=== PATIENT | female | born 1970 | race Caucasian/White ===

== ENCOUNTER 2016-07-03 11:00 | Emergency (ER) | payer BC ==
[2016-07-03 11:49] VITALS: BP 134/82
--- NOTE | 2016-07-03 13:17 | UC ---
Yonis Oh Karl, scribed for Jael Franco DO on 07/03/16 at 1238 . Respiratory Complaint HPI - HPI Summary HPI Summary: Pt is a 45 y/o female that presents to [facility] c/o sore throat, sinus congestion, dry cough, chest congestion, ear congestion, chills, and [place] for the past 3 days. Pt reported that her cough has also been causing sleep disturbance and it is aggravated when she takes deep breaths. Pt reported that she has tried cough drops, Mucinex D, Theraflu, and honey for her symptoms but none have offered lasting relief. Hx: asthma. - History of Current Complaint Chief Complaint: UCRespiratory Stated Complaint: ASTHMA-CHEST CONGEST/HEAD Time Seen by Provider: 07/03/16 12:21 Hx Obtained From: Patient Hx Last Menstrual Period: 06/08/16 ?: No Onset/Duration: Gradual Onset, Lasting Days, Still Present Timing: Constant Severity Initially: Moderate Severity Currently: Moderate Character: Cough: Nonproductive Aggravating Factors: Deep Breaths, Recumbent Position Alleviating Factors: Upright Position Associated Signs And Symptoms: Positive: Dyspnea - increased inhaler use, Fever - subjective, Chills, URI, Nasal Congestion, Hoarseness, Sinus Discomfort. Negative: Pleuritic Chest Pain, Dizziness - Allergies/Home Medications Allergies/Adverse Reactions: Allergies Allergy/AdvReac Type Severity Reaction Status Date / Time Erythromycin Allergy Severe Anaphylatic Verified 07/03/16 11:50 Shock Penicillins Allergy Severe Anaphylatic Verified 07/03/16 11:50 Shock PMH/Surg Hx/FS Hx/Imm Hx Endocrine History Of: Reports: Thyroid Disease Denies: Diabetes Cardiovascular History Of: Denies: Cardiac Disorders, Hypertension Respiratory History Of: Reports: Asthma Denies: COPD GI/ History Of: Denies: Ulcer - Surgical History Surgical History: Yes Surgery Procedure, Year, and Place: gallballder and tubal ligation - Family History Known Family History: Positive: Cardiac Disease - grandfather, Diabetes, Respiratory Disease, Other - colon CA - father - Social History Occupation: Employed Full-time Lives: With Family Alcohol Use: None Substance Use Type: None Smoking Status (MU): Never Smoked Tobacco Review of Systems Constitutional: Chills Skin: Negative Eyes: Negative ENT: Sore Throat, Ear Ache, Nasal Discharge, Other - sinus congestion Respiratory: Cough Cardiovascular: Negative Gastrointestinal: Negative Genitourinary: Negative Motor: Negative Neurovascular: Negative Musculoskeletal: Negative Neurological: Headache - worse with cough Psychological: Negative All Other Systems Reviewed And Are Negative: Yes Physical Exam Triage Information Reviewed: Yes Appearance: No Pain Distress, Well-Nourished, Ill-Appearing Vital Signs: Initial Vital Signs Temp 99 F 07/03/16 11:46 Pulse 76 07/03/16 11:46 Resp 22 07/03/16 11:46 BP 134/82 07/03/16 11:46 Pulse Ox 100 07/03/16 11:46 Vital Signs Reviewed: Yes Eyes: Positive: Conjunctiva Clear. Negative: Discharge ENT: Positive: Hearing grossly normal, Pharyngeal erythema - minimal, Nasal congestion, Nasal drainage, TMs normal, Tonsillar swelling - minimal, Other: - sinus tenderness bl maxillary sinuses. Negative: Tonsillar exudate, Trismus, Muffled/hoarse voice Neck exam: Normal Neck: Positive: Supple Respiratory: Positive: Lungs clear, No respiratory distress, No accessory muscle use, Wheezing - few scattered, Expiration - prolonged Cardiovascular: Positive: RRR, No Murmur Musculoskeletal Exam: Normal Neurological: Positive: Alert, Muscle Tone Normal Psychological Exam: Normal Psychological: Positive: Age Appropriate Behavior Skin Exam: Normal - warm, dry, normal skin color UC Diagnostic Evaluation - Laboratory O2 Sat by Pulse Oximetry: 100 Respiratory Course/Dx - Differential Dx/Diagnosis Differential Diagnosis/HQI/PQRI: Asthma, Bronchitis, Lower Resp Infection, Sinusitis Provider Diagnoses: sinusitis, bronchospasm, asthma Discharge - Discharge Plan Condition: Stable Disposition: HOME Prescriptions: Benzonatate CAP* [Tessalon CAP*] 100 mg PO TID #30 cap Cefdinir (NF) 300 mg PO BID #20 cap guaiFENesin ER TAB [Mucinex*] 600 mg PO BID PRN #1 box PRN Reason: Cough guaiFENesin/CODIEN 100MG-10MG* [Robitussin AC 100Mg-10Mg*] 5 - 10 ml PO Q4H PRN #100 udc MDD 10ml PRN Reason: Cough predniSONE TAB* [Deltasone TAB*] 40 mg PO DAILY #10 tab Patient Education Materials: Sinusitis (ED), Bronchospasm (ED), Asthma (ED) Forms: *Work Release Referrals: Abhi Marcos MD [Primary Care Provider] - If Needed Additional Instructions: TRY USING THE NETTI POT IN THE MORNINGS DISCUSSED. YOU MUST ALWAYS USE CLEAN WATER. REMEMBER, POSTURE IS AN IMPORTANT FACTOR IN SINUS DRAINAGE. MOVE YOUR NECK, BREATHE. INHALED BRONCHODILATORS:continue using your inhaler as directed You have received a prescription for an inhaled bronchodilator -- a medication which stimulates the airways in the lung to dilate. This improves the flow of air in asthma, bronchitis, and emphysema. These medicines have some similarity to adrenaline, and can cause similar side effects: shakiness, racing heart, and a sense of nervousness. These side effects decrease with time. Contact your doctor if these side effects are severe. Do not over-use the medicine. Too-frequent use of the inhaler may make it ineffective. Call your doctor if the inhaler is not controlling your symptoms at the prescribed doses. COUGH-SUPPRESSANT & EXPECTORANT MEDICATION: You are to use a cough medication as needed for relief of symptoms. This medicine is a combination of an expectorant (to make the mucous thinner and more easily "coughed up") and a cough suppressant (to reduce the frequency of coughing). The cough-suppressant medicine is related to narcotics. You may experience mild nausea and sleepiness. Some patients who are very sensitive to narcotics may have stomach pain from this medicine. Taking the medicine with food reduces these side effects. Do not drive or work with machinery until you know how this medicine affects you. The expectorant should have no side effects. Iodine-containing expectorants (such as organidin) should not be taken by persons with active thyroid disease unless approved by your doctor. Call the doctor if you develop shortness of breath, hives, rash, itching, lightheadedness, or severe nausea and vomiting. EXPECTORANT MEDICATION: An expectorant medicine has been prescribed. This type of drug makes mucous thinner, helping the sinuses, nose, and bronchial tubes to remain free of pus and mucous. Expectorants make a cough less severe and more comfortable, and help infected sinuses drain. In general, antihistamines defeat the purpose of the expectorant by making mucous thicker. They should be avoided unless specifically recommended by your physician. TESSALON PERLES: You have received a prescription for Tessalon Perles (benzonatate). This is a non-narcotic medicine for relief of cough. It usually works in about 15- 20 minutes and lasts around four hours. Tessalon Perles should be swallowed. They should not be chewed or dissolved in the mouth (this can produce temporary numbing of the mouth and choking can occur). If you develop any adverse effects such as wheezing, shortness of breath, hives, rash, itching, or lightheadedness, please return at once. CORTICOSTEROID MEDICATION: You have been given a medicine of the cortisone class. This medication is used to control inflammation or allergy. It is usually only given for a short period of time, until the acute process subsides. There are usually no side effects from short-term use of cortisone-like medications. Some persons feel an increased sense of well-being and are not sleepy at bedtime. Long-term use of cortisone medications is best avoided, unless required for a severe condition. If your condition does not remit, or relapses after the course of corticosteroid medication, you should consult your physician. Contact the physician if you develop lightheadedness, black or tarry stools , swelling of the legs, or significant rapid change in weight. ANTIBIOTICS ARE NOT CURRENTLY INDICATED FOR YOUR CONDITION. HOWEVER IF YOUR SYMPTOMS WORSEN OR PERSIST FOR MORE THAN 4-7 DAYS, YOU CAN START THE FOLLOWING ANTIBIOTIC: CEPHALOSPORINS: An antibiotic of the cephalosporin class has been prescribed. This type of antibiotic covers a wide variety of infections, including those of the skin, lungs, middle ear, and urinary tract. This antibiotic is somewhat similar to the penicillin family. In rare cases , a person who is allergic to penicillin will also be allergic to this medication. If you have had a severe allergic reaction to penicillin, and have not taken this antibiotic since that time, notify your doctor. Antibiotics which cover many germs ("broad spectrum" antibiotics) are more likely to cause diarrhea or "yeast" infections. Women prone to vaginal yeast problems may suffer an attack after taking this antibiotic. In infants, oral thrush (white spots "stuck" on the cheek) or yeast diaper rash may result. See your doctor if these problems occur. Call the doctor at once if you develop hives, itching, shortness of breath , or lightheadedness. ANY TIME YOU TAKE AN ANTIBIOTIC, IT IS IMPORTANT TO REPLENISH THE BODY'S BALANCE OF "GOOD" BACTERIA BY EATING HIGH QUALITY CULTURED FOOD SUCH YOGURT, SAURKRAUT OR SANG CHI AND/OR TAKING A PROBIOTIC SUPPLEMENT. The documentation as recorded by the Yonis jalloh Karl accurately reflects the service I personally performed and the decisions made by , Jael Franco DO.
== END 2016-07-03 13:12 | disposition home or self-care (01) ==
LOC: UCEAST 11:00
DX: J01.90 Acute sinusitis, unspecified (principal); B96.89 Other specified bacterial agents as the cause of diseases classified elsewhere; J45.909 Unspecified asthma, uncomplicated
CPT/HCPCS: 99212; G0463

== ENCOUNTER 2017-10-31 09:30 | Inpatient (IN) | payer BC ==
[2017-11-06] MEDS ORDERED: Buffered Lidocaine 0.9% SYRIN* 5 ML/SYR SYRINGE INTRADERM ONE (14:56)
[2017-11-07] MEDS ORDERED: Heparin VIAL(*) 5000 UNITS/ML VIAL (FIVE THOUSAND) ONE (08:41)
[2017-11-07] MEDS ORDERED: Buffered Lidocaine 0.9% SYRIN* 5 ML/SYR SYRINGE ONE (08:41)
[2017-11-07] MEDS ORDERED: Ciprofloxacin 400MG IVPREMIX(* 400 MG/200 ML BAG ONE (08:41)
[2017-11-07] MEDS ORDERED: Clindamycin 900 MG IVPREMIX(* 900 MG/50 ML SDV IV ONE (08:41)
[2017-11-07] MEDS ORDERED: Scopolamine 1.5 mg* PATCH ONE (09:50)
[2017-11-07] MEDS ORDERED: Midazolam* 1 MG/ML 5 ML VIAL (5 MG) ONE (09:50)
[2017-11-07] MEDS ORDERED: Methylene Blue 0.5 %* 50 MG/10 ML AMP IV ONE (09:51)
[2017-11-07] MEDS ORDERED: Bupivacaine 0.25% SDV* 30 ML ONE ×2 (09:52→10:04)
[2017-11-07] MEDS ORDERED: Atracurium* 10 MG/ML 10 ML VIAL ONE (09:53)
[2017-11-07] MEDS ORDERED: fentaNYL* 50 MCG/ML 2 ML VIAL (100 MCG VIAL) ONE ×3 (09:53→13:37)
[2017-11-07] MEDS ORDERED: Dexamethasone IV* 4 MG/ML 1 ML (4 MG) ONE (10:40)
[2017-11-07] MEDS ORDERED: Glycopyrrolate IV* 0.2 MG/ML 1 ML VIAL ONE (13:07)
[2017-11-07] MEDS ORDERED: Neostigmine Methylsulfate* 1 MG/ML 10 ML VIAL (1 mg/ml) ONE (13:07)
[2017-11-07] MEDS ORDERED: HYDROmorphone INJ* 2 MG/ML CARPUJECT SYRINGE IV PRN (13:16)
[2017-11-07] MEDS ORDERED: HYDROcodone/ACET. 7.5/325 LIQ* 15 ML UDC PO PRN (13:16)
[2017-11-07] MEDS ORDERED: Ondansetron INJ* 2 MG/ML VIAL IV PRN ×2 (13:16→13:26)
--- NOTE | 2017-11-07 13:16 | BRIEFOPN ---
Brief Operative Note - Surgery Procedures: Procedures Pre-OP Diagnoses: Clinically severe obesity Post-op Diagnosis: same Procedure: Laparoscopic Adrian an Y gastric bypass Surgeon: Isela Asst: Kaila Anethesia: GETA EBL: <100cc IVF: 2000cc LR Specimen: none Drains: none
[2017-11-07] MEDS ORDERED: Albuterol HFA INHALER* 8 gm MDI INH PRN (13:19)
[2017-11-07] MEDS ORDERED: DiMENhydriNATE IV* 50 MG/ML VIAL IV PUSH PRN (13:26)
[2017-11-07] MEDS ORDERED: Naloxone* 0.4 MG/ML 1 ML VIAL IV PRN (13:26)
[2017-11-07] MEDS ORDERED: fentaNYL* 50 MCG/ML 2 ML VIAL (100 MCG VIAL) IV PRN (13:26)
[2017-11-07] MEDS ORDERED: DiMENhydriNATE IV* 50 MG/ML VIAL ONE (13:44)
[2017-11-07] MEDS ORDERED: HYDROmorphone INJ* 2 MG/ML CARPUJECT SYRINGE ONE (15:22)
[2017-11-07] MEDS: HYDROmorphone INJ* 1 MG/ML CARPUJECT SYRINGE IV PRN ×2 (15:27→15:32)
[2017-11-07] MEDS ORDERED: Ondansetron 40 MG VIAL* 2 MG/ML 20 ML VIAL IV PRN (15:52)
[2017-11-07] MEDS: Heparin VIAL(*) 5000 UNITS/ML VIAL (FIVE THOUSAND) SUBCUT SCH ×2 (17:19→22:08)
[2017-11-07] MEDS: Ketorolac INJ* 30 MG/ML 1 ML VIAL IV PRN (19:32)
[2017-11-07] MEDS: Famotidine IV* 10 MG/ML 2 ML (20 mg) IV SLOW PU SCH (20:56)
[2017-11-08] MEDS: Ketorolac INJ* 30 MG/ML 1 ML VIAL IV PRN ×2 (02:47→08:42)
[2017-11-08] MEDS ORDERED: Levothyroxine TAB* 125 MCG TAB PO SCH (06:00)
[2017-11-08] MEDS: Heparin VIAL(*) 5000 UNITS/ML VIAL (FIVE THOUSAND) SUBCUT SCH ×2 (06:22→15:13)
[2017-11-08] MEDS: Famotidine IV* 10 MG/ML 2 ML (20 mg) IV SLOW PU SCH (08:42)
--- NOTE | 2017-11-08 09:17 | PN ---
Progress Note - Progress Note Date of Service: 11/08/17 Note: S: (seen with and examined by Dr. Weiss) POD #1. Some pain. No N/V. Ambulating. Voiding well. O: Vital Signs - 8 hr 11/08/17 03:33 Temperature 98.0 F Pulse Rate 71 Respiratory 16 Rate Blood Pressure 111/55 (mmHg) O2 Sat by Pulse 96 Oximetry Intake and Output Last 24 Hours 11/06/17 11/07/17 11/08/17 11/09/17 06:59 06:59 06:59 06:59 Intake Total 3890 Output Total 1900 Balance 1989 Weight 216 lb 6.4 oz Intake: IV Fluids 3890 LR 3890 Oral 0 Output: Urine 1350 Jane 300 Estimated Blood Loss 250 Other: # Bowel Movements 0 (estimated OR blood loss was < 50 ml) Gen: appears comfortable; NAD Heart: reg Lungs: clear ant Abd: lap sites clean w/ min spotting on cover dsgs; soft; incisional tenderness , grace at subxiphoid site A: s/p lap gastric bypass, doing well P: start nellie clear liqs; will monitor and recheck later in the day; poss d/c home if meets criteria
--- NOTE | 2017-11-08 11:31 | OP ---
CC: Dr. Abhi Marcos; [facility]. OPERATIVE REPORT: DATE OF OPERATION: 11/07/17 DATE OF : 70 SURGEON: Enrique Weiss MD SHOE SINGER: ROSANNA Pope ANESTHESIOLOGIST: Dr. Ramos. ANESTHESIA: General anesthesia. PRE-OP DIAGNOSIS: Clinically severe obesity. POST-OP DIAGNOSIS: Clinically severe obesity. OPERATIVE PROCEDURE: Laparoscopic Adrian-en-Y gastric bypass. ESTIMATED BLOOD LOSS: Minimal blood loss, less than 100 cc. FLUIDS: 2 liters of crystalloid fluid given. SPECIMENS: None. DRAINS: None. COUNTS: Lap pad count and instrument count correct at the end of the procedure. CONDITION: The patient was extubated and transferred to the PACU in stable condition. DESCRIPTION OF PROCEDURE: The patient was identified in the preoperative area, marked, consent hafsa d. I discussed the case with her and her family again. She was seen by anesthesia, brought to the o perating room, placed on the operating room table in a supine position. Preoperative antibiotics wer e given, sequential devices were placed on bilateral lower extremities, general anesthesia was induce d. The patient's abdomen was prepped and draped in the standard surgical fashion. A time-out was per formed. Folds of the umbilicus were elevated anteriorly and a Veress needle inserted into the abdominal cavit y which was allowed to insufflate to a pressure 15 mmHg. The patient tolerated the insufflation well . [place] between the xiphoid and the umbilicus a 12 mm trocar was inserted left of midline. Laparos cope was inserted through this and there was no evidence of injury from the trocar insertion. The V eress needle was then removed. Additional trocars were placed in the following position; 5 mm and 12 mm in the left upper quadrant a nd a 5 mm and a 12 mm in the right upper quadrant. Review of the abdomen showed no adhesions. The o mentum was then reflected superiorly. Transverse colon identified and retracted anteriorly and the li gament of Treitz identified. We counted off approximately 50 cm from the ligament of Treitz and mad e a bowel resection with a 45-mm farmer ARINA stapling device. The proximal limb would be the biliary espinoza creatic limb. We performed an enterotomy at this site. We then counted off what would become Adrian l imb, approximately 75 cm was counted off. Another enterotomy was made and the jejunojejunostomy was c reated with a 60-mm farmer ARINA stapling device. The common defect was reapproximated with interrupted 2-0 silk sutures in the [id number] fashion and the mesenteric defect was similarly closed. Attention was then turned towards the upper abdomen, liver retractor was inserted through a subxiphoi d incision and the liver was retracted anteriorly into the right. We could see a hiatal hernia anter iorly with puckering of the fat pad, but minimum amount of stomach. We grasped this fat pad and retr acted it inferiorly into the abdomen. Both blunt and sharp dissection along with electrocautery was used to expose the left crura with laxity anteriorly on this crura, but we cleared out this space pos terior on the crura. Next, a retrogastric tunnel was made at approximately gastric vessel along the lesser curvatu re. A 45-mm farmer ARINA stapling device was fired across this and the stomach pouch was completed with t wo additional 60-mm ildefonso followed by a 44- mm stapler. The last 45-mm stapler was fired after vance cing an OG tube down to ensure we are in the proper place. Anesthesia have some difficulty placing a n Derrell tube initially. On review of the stomach pouch, I felt this was appropriate size. There was no posterior stomach and I felt that we do not have to perform any type of cruroplasty under this circumstances. Next the OG tube was replaced with a larger Derrell tube 34 [place]cu[place] and it went smoothly into the distal stomach pouch. Next small bowel Adrian-limb was then brought up in apposition to the stomach pouch and stay sutures we re placed using 2-0 silk sutures. Next a gastrostomy was made over the Derrell tube and then an enterotomy was made. The two were mated w ith a 30-mm farmer ARINA stapling device to create the gastrojejunostomy. The common defect was reapproxi mated with 3-0 PDS sutures in a running fashion starting superiorly and also inferiorly and tying the m in the middle. Next the anastomosis was tested passing the Derrell tube easily into the proximal Adrian limb. The Adrian limb was clamped and with the gauze behind the anastomosis methylene blue dye test was performed. Th e small bowel and gastric pouch were distended easily and there was no evidence of blue dye. The dimas e dye was then removed through the Derrell tube by the anesthesiologist. The tube was removed in its e ntirety. Review of the suture line looked good. I did also place a second row of 2-0 silk suture at the infer ior aspect of it. Next a Maxime retractor was removed. Review of the jejunojejunostomy appeared intact. The hemost asis was excellent. The abdomen was allowed to collapse and all trocars were removed under direct vi chico. All skin incisions were reapproximated with 4-0 Monocryl subcuticular sutures followed by Ster i-Strips and sterile dressing. The patient tolerated the procedure well, woken up in the OR, and tra nsferred back in stable condition. [id number]/[facility] #: [id number]
[2017-11-08] MEDS ORDERED: D5W 1/2 NS KCl 20 Meq 1000 ML* 1,000 ML IV SCH (13:17)
[2017-11-08] MEDS ORDERED: Acetaminophen ADULT LIQ* 650 MG/20.3 ML UDC ONE (16:12)
[2017-11-08] MEDS ORDERED: Acetaminophen ADULT LIQ* 650 MG/20.3 ML UDC PO PRN (16:15)
[2017-11-08 17:09] VITALS: BP 119/68
--- NOTE | 2017-11-09 18:52 | DS ---
CC: Dr. Abhi Marcos; [facility] DISCHARGE SUMMARY: DATE OF ADMISSION: 11/07/17 DATE OF DISCHARGE: 11/08/17 HISTORY OF PRESENT ILLNESS: Ms. Mancini is a 47-year-old female who is admitted to same-day surgery an d underwent laparoscopic Adrian-en-Y gastric bypass for severe obesity. Please see operative report fo r separate details. The patient was transferred to the PACU and on to the short-stay surgical unit for the postoperative period. On postoperative day #1, patient was doing well. She was started on a clear liquid diet and tolerate d this well. She has taken Tylenol for pain rather than narcotics. She was also on Toradol. The ofe durán was examined in the morning and again in the afternoon. She was afebrile. Vital signs are sta ble. Alert and oriented x3, in no apparent distress. Lungs: Clear. Abdomen: Soft, nondistended. Tenderness in the epigastrium without rebound. No masses or hernias noted. Dressings clean, dry an d intact. No calf tenderness. IMPRESSION: Postoperative day #1, Adrian-en-Y gastric bypass. Plan is for followup in the office at [facility] next week. The patient has appointment already. Sh yarelis has Lortab for pain. She will go back on her Synthroid and we will discharge her today. The patie nt is aware. Her questions were answered. She understands she can contact our office should there b e any issues. [id number]/[facility] #: [id number]
== END 2017-11-08 17:25 | disposition home or self-care (01) | DRG 403 ==
LOC: AA 11-07 08:26 → SSU 11-07 15:44
PROVIDERS: ADMIT Surgery; ATTEND Surgery
PROC: 0D164ZA Bypass Stomach to Jejunum, Percutaneous Endoscopic Approach (ICD-10-PCS; principal; 2017-11-07 09:45)
DX: E66.01 Morbid (severe) obesity due to excess calories (principal); J45.909 Unspecified asthma, uncomplicated; G47.33 Obstructive sleep apnea (adult) (pediatric); M19.90 Unspecified osteoarthritis, unspecified site; E07.9 Disorder of thyroid, unspecified; Z88.0 Allergy status to penicillin; Z88.1 Allergy status to other antibiotic agents; Z98.51 Tubal ligation status; Z90.49 Acquired absence of other specified parts of digestive tract; Z82.49 Family history of ischemic heart disease and other diseases of the circulatory system; Z83.3 Family history of diabetes mellitus; Z68.41 Body mass index [BMI] 40.0-44.9, adult; Z72.89 Other problems related to lifestyle; Z80.0 Family history of malignant neoplasm of digestive organs
CPT/HCPCS: 43644; 81025; A9270-GY; C1776; J0744; J1100; J1170; J1240; J1644; J1885; J2250; J2405; J2710; J3010

== ENCOUNTER 2017-11-13 03:46 | Inpatient (IN) | payer BC ==
[2017-11-13] MEDS ORDERED: NS 0.9% 1000 ML* 1,000 ML IV ONE (04:09)
[2017-11-13] MEDS ORDERED: Ketorolac INJ* 30 MG/ML 1 ML VIAL IV PUSH ONE (04:10)
[2017-11-13] MEDS ORDERED: Metoclopramide IV* 5 MG/ML 2 ML VIAL IV SLOW PU ONE (04:10)
[2017-11-13 04:34] LABS: ABS Basophils 0 10^3/ul (0-0.2); ABS Eosinophils 0.1 10^3/ul (0-0.6); ABS Lymphocytes 0.9 10^3/ul (1.0-4.8); ABS Monocytes 0.6 10^3/ul (0-0.8); ABS Neutrophils 6.9 10^3/ul (1.5-7.7); ABS Nucleated RBC 0 10^3/ul; Eosinophil % 1.6 % (0-6); Hematocrit 34 % (35-47); Hemoglobin 11.5 g/dl (12.0-16.0); Lymphocyte % 11.1 % (25-47); Mean Corpuscular HGB Conc 34 g/dl (31-36); Mean Corpuscular Hemoglobin 29 pg (27-31); Mean Corpuscular Volume 85 fL (80-97); Mean Platelet Volume 8.4 um3 (7.4-10.4); Nucleated Red Blood Cells % 0; Platelet Count 240 10^3/ul (150-450); Red Cell Distribution Width 15 % (10.5-15); White Blood Count 8.6 10^3/ul (3.5-10.8)
[2017-11-13 04:59] LABS: EGFR Non-African American 123.6 (>60)
[2017-11-13] MEDS ORDERED: Iohexol 300* (CONTRAST) 10 ML SDV IV ONE (05:09)
--- NOTE | 2017-11-13 06:56 | ED ---
Lidia Oh Emily, scribed for Virginie Starkey MD on 11/13/17 at 0413 . Abdominal Pain/Female - HPI Summary HPI Summary: This patient is a 47 year old F presenting to [facility] accompanied by with a chief complaint of diffuse abd cramping that began on 11/11/2017. The patient rates the pain 5/10 in severity. Symptoms aggravated by nothing. Symptoms alleviated by nothing. Patient reports vomiting and dry heaving. Pt had gastric bypass abdominal surgery on 11/07/2017. Pt states she has not had a bowel movement in the past 3 days. - History of Current Complaint Chief Complaint: EDAbdPain Stated Complaint: ABD PAIN Time Seen by Provider: 11/13/17 03:58 Hx Obtained From: Patient Hx Last Menstrual Period: 06/08/16 Onset/Duration: Sudden Onset, Lasting Hours, Still Present Timing: Constant Severity Initially: Moderate Severity Currently: Moderate Pain Intensity: 5 Pain Scale Used: 0-10 Numeric Location: Diffuse Character: Cramping Aggravating Factor(s): Nothing Alleviating Factor(s): Nothing Associated Signs and Symptoms: Positive: Vomiting, Other: - Positive dry heaving Allergies/Adverse Reactions: Allergies Allergy/AdvReac Type Severity Reaction Status Date / Time erythromycin base Allergy Anaphylatic Verified 11/13/17 03:53 Shock Penicillins Allergy Anaphylatic Verified 11/13/17 03:53 Shock PMH/Surg Hx/FS Hx/Imm Hx Previously Healthy: No Endocrine/Hematology History: Reports: Hx Thyroid Disease, Hx Anemia - reports occas borderline Denies: Hx Diabetes Cardiovascular History: Denies: Hx Hypertension Respiratory History: Reports: Hx Asthma, Hx Sleep Apnea - just diagnosed, no CPAP yet, Other Respiratory Problems/Disorders - pnuemonia 5-7 yrs ago Denies: Hx Chronic Obstructive Pulmonary Disease (COPD) GI History: Reports: Hx Hiatal Hernia - reports small one found during EGD Denies: Hx Ulcer Musculoskeletal History: Reports: Hx Arthritis - hips Denies: Hx Scoliosis Sensory History: Reports: Hx Contacts or Glasses - driving glasses only Opthamlomology History: Reports: Hx Contacts or Glasses - driving glasses only Neurological History: Denies: Hx Headaches, Other Neuro Impairments/Disorders - Surgical History Surgery Procedure, Year, and Place: cholecyst[place] ([place] "[place]" [place] [facility] [place] [facility] [place] [facility] Hx Anesthesia Reactions: No Infectious Disease History: No Infectious Disease History: Reports: Hx of Known/Suspected MRSA - reports on face in 2007, Hx Shingles - reports on right arm 2014 Denies: Hx Clostridium Difficile, Hx Hepatitis, Hx Human Immunodeficiency Virus (HIV), Hx Tuberculosis, Hx Known/Suspected VRE, Hx Known/Suspected VRSA, History Other Infectious Disease, Traveled Outside the [place] in Last 30 Days - Family History Known Family History: Positive: Cardiac Disease - grandfather, Diabetes, Respiratory Disease, Other - colon CA - father - Social History Occupation: Employed Full-time Lives: Alone Alcohol Use: Occasionally Substance Use Type: Reports: None Smoking Status (MU): Never Smoked Tobacco Review of Systems Negative: Fever Positive: Abdominal Pain, Vomiting, Other - Positive dry heaving All Other Systems Reviewed And Are Negative: Yes Physical Exam - Summary Physical Exam Summary: VITAL SIGNS: Reviewed. GENERAL: ~Patient is a well-developed and nourished female who is lying comfortable in the stretcher. Patient is not in any acute respiratory distress. HEAD AND FACE: No signs of trauma. No ecchymosis, hematomas or skull depressions. No sinus tenderness. EYES: PERRLA, EOMI x 2, No injected conjunctiva, no nystagmus. EARS: Hearing grossly intact. Ear canals and tympanic membranes are within normal limits. MOUTH: Oropharynx within normal limits. NECK: Supple, trachea is midline, no adenopathy, no JVD, no carotid bruit, no c- spine tenderness, neck with full ROM. CHEST: Symmetric, no tenderness at palpation LUNGS: Clear to auscultation bilaterally. No wheezing or crackles. CVS: Regular rate and rhythm, S1 and S2 present, no murmurs or gallops appreciated. ABDOMEN: Soft. No signs of distention. No rebound no guarding, and no masses palpated. Steri strips over laparoscopic ports. Hypoactive bowel sounds. RECTAL EXAM: Female RN present. Empty rectum. EXTREMITIES: FROM in all major joints, no edema, no cyanosis or clubbing. NEURO: Alert and oriented x 3. No acute neurological deficits. Speech is normal and follows commands. SKIN: Dry and warm Triage Information Reviewed: Yes Vital Signs On Initial Exam: Initial Vitals Temp Pulse Resp BP Pulse Ox 98.1 F 87 20 129/90 98 11/13/17 03:48 11/13/17 03:48 11/13/17 03:48 11/13/17 03:48 11/13/17 03:48 Vital Signs Reviewed: Yes Diagnostics - Vital Signs Vital Signs Temp Pulse Resp BP Pulse Ox 11/13/17 03:48 98.1 F 87 20 129/90 98 - Laboratory Result Diagrams: 11/13/17 04:20 11/13/17 04:20 Lab Statement: Any lab studies that have been ordered have been reviewed, and results considered in the medical decision making process. - CT CT Abdomen/Pelvis CT Interpretation Completed By: Radiologist - CT abdomen and pelvis reveals, per radiologist, 4.1 cm right ovarian cyst, possibly hemorrhagic in nature, and small amount of free fluid. Possible obstruction of the bypassed gastric remnant , although this would be an unusual early postoperative complication. ED physician has reviewed this radiology report. Re-Evaluation - Re-Evaluation First Eval Re-Evaluation Time: 06:44 Change: Unchanged Comment: Discussed results with pt Abdominal Pain Fem Course/Dx - Course Course Of Treatment: This patient is a 47 year old F presenting to [facility] accompanied by with a chief complaint of diffuse abd cramping that began on prior to arrival. Pt had gastric bypass abdominal surgery on 2017. Pt states she has not had a bowel movement in the past [address] abdomen and pelvis reveals, per radiologist, 4.1 cm right ovarian cyst, possibly hemorrhagic in nature, and small amount of free fluid. Possible obstruction of the bypassed gastric remnant, although this would be an unusual early postoperative complication. Consult with Dr. Weiss (surgeon) at 0648. He agrees to see the pt in the ED. Pt will be signed out to Dr. Walker upon shift change pending pt being seen by Dr. Weiss. - Diagnoses Provider Diagnoses: Abdominal pain - Provider Notifications Discussed Care Of Patient With: Enrique Weiss Time Discussed With Above Provider: 06:48 Instructed by Provider To: Other - Consult with Dr. Weiss (surgeon) at 0648. He agrees to see the patient in the ED. Discharge - Sign-Out/Discharge Documenting (check all that apply): Sign-Out Patient Signing out patient TO: Miguel Walker - Upon shift change pending evaluation by Dr. Weiss - Discharge Plan Condition: Stable Referrals: Abhi Marcos MD [Primary Care Provider] - The documentation as recorded by the Lidia jalloh Emily accurately reflects the service I personally performed and the decisions made by me, Virginie Starkey MD.
[2017-11-13] MEDS ORDERED: HYDROmorphone INJ* 1 MG/ML CARPUJECT SYRINGE IV PRN (07:26)
[2017-11-13 07:59] LABS: Urine Appearance Clear; Urine Blood Negative (Negative); Urine Color Yellow; Urine Ketones 2+ (Negative); Urine Protein Negative (Negative); Urine Specific Gravity > 1.060 (1.010-1.030); Urine Urobilinogen Negative (Negative)
--- NOTE | 2017-11-13 08:49 | HP ---
CC: ; Dr. Abhi Marcos HISTORY AND PHYSICAL UPDATE: DATE OF ADMISSION: 11/13/17 HISTORY OF PRESENT ILLNESS: Ms. Mancini is a 47-year-old female who is postop day 6 from laparoscopic Adrian-en-Y gastric bypass. The patient was discharged home on postoperative day 1, had some discomfor t and concern for constipation and took laxatives, done well on Sunday and on Sunday a little worse when she was taking laxatives. Sunday was a fair day as well but by Sunday the patient had retching and worsening pain and called the service. I directed her to go to the emergency room. In the [facility] room, the patient's workup included CAT scan as well as labs; these were reviewed. The patient has minimal amount of flatus since surgery. She describes having no bowel movements. Sh yarelis did not vomit but rather dry heave. She has been drinking fluids. She has been staying away from solid foods. She denies any fevers or chills. She did have sweats during one of the episodes of ret alisa. PAST MEDICAL HISTORY: Asthma, obesity, thyroid disease, osteoarthritis, and obstructive sleep apnea. She does not use CPAP machine. PAST SURGICAL HISTORY: Cholecystectomy, tubal ligation, and a Adrian-en-Y gastric bypass as described. MEDICATION LIST: At this point, Synthroid. ALLERGIES: PENICILLIN and ERYTHROMYCIN. REVIEW OF SYSTEMS: No shortness of breath or chest pain. Abdominal complaints as described. Her th roat feels dry. She denies any dysuria. No bowel movements as described above. PHYSICAL EXAMINATION GENERAL: Alert and oriented x3, in no apparent distress. VITAL SIGNS: She is afebrile. Vital signs are stable. Blood pressure 120/89, heart rate 71. HEENT: Normocephalic, atraumatic. Sclerae anicteric. Mucous membranes are dry. NECK: No lymphadenopathy. LUNGS: Clear to auscultation bilaterally ABDOMEN: Soft, mild distention in the upper abdomen. Tender periumbilically and up in the epigastri um without rebound. No masses or hernias noted. Well healed surgical incisions. EXTREMITIES: Within normal limits. No calf tenderness or swelling. RECTAL: Not performed. DIAGNOSTIC STUDIES/LAB DATA: Labs show a white count of 8.6 with no left shift. Metabolic panel is within normal limits. Mildly elevated CRP. CT scan reviewed shows a dilated remnant stomach and duodenum. It does show scant amount of oral con trast distally but not into the colon. Stool is noted in the colon. Official read pending. IMPRESSION: Postoperative day 6 from Adrian-en-Y gastric bypass with obstruction of the biliopancreati c limb of unclear etiology, possible internal hernia versus complication at the jejunojejunostomy. R ecommendation is diagnostic laparoscopy, possible laparotomy. I outlined the details of the procedur e of possible revision of the jejunojejunostomy and possible placement of a remnant gastrostomy. We also talked about the possibility of open procedure, possibility of infection, bleeding, postoperativ checo need for additional procedures, prolonged hospitalization, pulmonary embolism, myocardial infarct ion, possible intensive care unit needs. The patient's questions were answered. She will get a dose of antibiotic going into the OR. She will remain n.p.o. with IV fluids. The patient is aware of th is. [id number]/[facility] #: [id number]
--- NOTE | 2017-11-13 08:51 | RAD ---
INDICATION: Abdominal pain COMPARISON: CT abdomen pelvis July 27, 2012 TECHNIQUE: Axial source images were obtained from the hemidiaphragms to the symphysis pubis following administration of oral and intravenous contrast. 128 mL Omnipaque 300 was utilized. Coronal and sagittal reconstructed images were acquired. Lung bases: The lung bases are clear. Liver: The liver is normal in size. There are no masses. There is minor intrahepatic ductal dilatation. Gallbladder: Cholecystectomy. Spleen: The spleen is normal in size. There are no masses. Pancreas: There is no focal pancreatic mass or ductal dilatation. Adrenal glands: There is no evidence of adrenal mass. Kidneys: The kidneys are normal in size and position. There are prompt nephrograms and there is prompt excretion bilaterally. There are no renal parenchymal masses. There is no evidence of nephrolithiasis. Adenopathy: There is no evidence of adenopathy by size criteria. Fluid collections: There is trace free fluid in the cul-de-sac. Vessels:There are no significant atherosclerotic changes involving the aorta. There is no focal aneurysm. The iliac vessels are normal in caliber. The IVC appears normal. GI tract: There is there is gastric Adrian-en-Y procedure. The gastric remnant and proximal duodenum appear dilated and fluid-filled. There may be an obstruction. There is a small amount of oral contrast in the decompressed small bowel. There is air within the colon. Pelvic organs: The uterus appears normal. The left adnexa is normal. There is a 4.1 cm right ovarian cyst.. Bladder: There are no bladder masses. Abdominal and pelvic soft tissues: There is a small septation air likely secondary to recent surgery and there is mild stranding of the subcutaneous fat of the anterior lower abdomen.. Osseous structures: There are no acute osseous findings. Other: None IMPRESSION: 1. Possible obstruction of the gastric remnant and proximal duodenum. 2. 4.1 cm right ovarian cyst. Suggest sonographic follow-up.
[2017-11-13] MEDS ORDERED: Scopolamine 1.5 mg* PATCH ONE (09:05)
[2017-11-13] MEDS ORDERED: Clindamycin 900 MG IVPREMIX(* 900 MG/50 ML SDV IV ONE (09:38)
[2017-11-13] MEDS ORDERED: Saline, Bacteriostatic* 30 ML VIAL ONE (11:01)
[2017-11-13] MEDS ORDERED: Bupivacaine 0.5% SDV PF* 30ML VIAL ONE (11:02)
[2017-11-13] MEDS ORDERED: fentaNYL* 50 MCG/ML 2 ML VIAL (100 MCG VIAL) ONE ×4 (11:35→15:07)
[2017-11-13] MEDS ORDERED: Succinylcholine* 20 MG/ML 10 ML VIAL ONE (11:35)
[2017-11-13] MEDS ORDERED: Propofol* 10 MG/ML 20 ML BTL IV PUSH ONE (11:35)
[2017-11-13] MEDS ORDERED: Dexamethasone IV* 4 MG/ML 1 ML (4 MG) ONE (11:35)
[2017-11-13] MEDS ORDERED: Lidocaine 2% PF * 5 ML VIAL ONE (11:37)
[2017-11-13] MEDS ORDERED: Atracurium* 10 MG/ML 10 ML VIAL ONE (12:04)
[2017-11-13] MEDS ORDERED: Naloxone* 0.4 MG/ML 1 ML VIAL IV PRN (12:12)
[2017-11-13] MEDS ORDERED: DiMENhydriNATE IV* 50 MG/ML VIAL IV PUSH PRN (12:12)
[2017-11-13] MEDS ORDERED: Ondansetron INJ* 2 MG/ML VIAL IV PRN (12:12)
[2017-11-13] MEDS ORDERED: Methylene Blue 0.5 %* 50 MG/10 ML AMP IV ONE (13:04)
--- NOTE | 2017-11-13 13:22 | ED ---
Daquan Oh Tiffany, scribed for Miguel Walker on 11/13/17 at 0846 . Progress - Progress Note Progress Note: Pt signed out from Dr. Starkey, pending surgery consult. Dr. Weiss evaluated and agreed to admit pt. Re-Evaluation - Re-Evaluation First Eval Re-Evaluation Time: 06:44 Change: Unchanged Comment: Discussed results with pt Course/Dx - Course Course Of Treatment: 47 y/o F presents to emergency department complains of diffuse abdominal pain, signed out from Dr. Starkey, pending surgery consult. Dr. Weiss (surgery) evaluated patient and agreed to admit. Dx abdominal pain. - Diagnoses Provider Diagnoses: Abdominal pain Discharge - Sign-Out/Discharge Documenting (check all that apply): Discharge/Admit/Transfer - Discharge Plan Condition: Stable Disposition: ADMITTED TO [facility] The documentation as recorded by the Daquan jalloh Tiffany accurately reflects the service I personally performed and the decisions made by Denise santos Emmanuel.
[2017-11-13] MEDS ORDERED: Atropine 1MG/ML INJ* 1 ML VIAL ONE (14:00)
[2017-11-13] MEDS: fentaNYL* 50 MCG/ML 2 ML VIAL (100 MCG VIAL) IV PRN ×4 (14:18→15:13)
[2017-11-13] MEDS: HYDROmorphone INJ* 1 MG/ML CARPUJECT SYRINGE IV PRN ×3 (14:50→15:12)
[2017-11-13] MEDS ORDERED: HYDROmorphone INJ* 2 MG/ML CARPUJECT SYRINGE ONE (14:50)
--- NOTE | 2017-11-13 14:55 | BRIEFOPN ---
Brief Operative Note - Surgery Procedures: Procedures Pre-OP Diagnoses: abdominal pain, SBO Post-op Diagnosis: internal hernia, twisted libby limb Procedure: Diagnostic Laparoscopy, revision of gastrojejunostomy Surgeon: Isela Asst: Mecenas Anethesia: KAREN Moreno EBL: minimal IVF: crytalloid Specimen: portion of gastrojejunostomy Drains: #10 MAN
[2017-11-13] MEDS: Heparin VIAL(*) 5000 UNITS/ML VIAL (FIVE THOUSAND) SUBCUT SCH ×2 (16:57→22:05)
[2017-11-13] MEDS: HYDROmorphone INJ* 2 MG/ML CARPUJECT SYRINGE IV PRN ×2 (17:58→21:57)
[2017-11-13] MEDS: Ondansetron 40 MG VIAL* 2 MG/ML 20 ML VIAL IV PRN (22:04)
[2017-11-14] MEDS: HYDROmorphone INJ* 2 MG/ML CARPUJECT SYRINGE IV PRN (03:47)
[2017-11-14] MEDS: Ondansetron 40 MG VIAL* 2 MG/ML 20 ML VIAL IV PRN (03:55)
[2017-11-14] MEDS: Heparin VIAL(*) 5000 UNITS/ML VIAL (FIVE THOUSAND) SUBCUT SCH ×3 (06:06→21:16)
[2017-11-14] MEDS: Levothyroxine INJ* 100 MCG/5 ML VIAL IV SCH (06:07)
[2017-11-14] MEDS ORDERED: Morphine VIAL* 4 MG/ML VIAL (1 ml vial) IV PRN (07:38)
--- NOTE | 2017-11-14 07:41 | PN ---
Progress Note - Progress Note Date of Service: 11/14/17 SOAP: Subjective: pt seen and examined. abdo pain, nausea Objective: af vss uo good lungs clear abdo: soft/ distended/ tender MAN serosang no calf tenderness labs P Assessment: POD 1 revision gastric bypass Plan: UGi d/c shabazz pain control
[2017-11-14] MEDS: Ketorolac INJ* 30 MG/ML 1 ML VIAL IV PUSH PRN ×3 (08:17→21:14)
[2017-11-14 08:24] LABS: ABS Basophils 0 10^3/ul (0-0.2); ABS Eosinophils 0.1 10^3/ul (0-0.6); ABS Lymphocytes 2.4 10^3/ul (1.0-4.8); ABS Monocytes 0.9 10^3/ul (0-0.8); ABS Neutrophils 8.5 10^3/ul (1.5-7.7); ABS Nucleated RBC 0 10^3/ul; Eosinophil % 0.4 % (0-6); Hematocrit 35 % (35-47); Hemoglobin 11.5 g/dl (12.0-16.0); Lymphocyte % 20.6 % (25-47); Mean Corpuscular HGB Conc 33 g/dl (31-36); Mean Corpuscular Hemoglobin 29 pg (27-31); Mean Corpuscular Volume 86 fL (80-97); Mean Platelet Volume 8.9 um3 (7.4-10.4); Nucleated Red Blood Cells % 0; Platelet Count 268 10^3/ul (150-450); Red Blood Count 4.02 10^6/ul (4.0-5.4); Red Cell Distribution Width 15 % (10.5-15); White Blood Count 11.9 10^3/ul (3.5-10.8)
[2017-11-14 08:40] LABS: EGFR Non-African American 111.4 (>60)
--- NOTE | 2017-11-14 10:02 | RAD ---
INDICATION: Gastric bypass surgery revision, rule out intraperitoneal leak. COMPARISON: Comparison is made with a prior CT of the abdomen and pelvis from November 13, 2017. Technique: A single contrast upper GI series examination was performed with Gastrografin contrast. Approximately 2.0 minutes of intermittent fluoroscopic guidance were used during the exam. Findings: The patient is status post Adrian-en-Y gastric bypass surgery. The esophageal peristalsis appeared normal. The gastric pouch appear within normal limits. The gastrojejunostomy appeared patent. There is no evidence for intraperitoneal leakage of contrast. IMPRESSION: STATUS POST LAPAROSCOPIC ADRIAN-EN-Y GASTRIC BYPASS SURGERY, NO EVIDENCE FOR INTRAPERITONEAL LEAKAGE OF CONTRAST. CPT II Codes: G9500
--- NOTE | 2017-11-14 10:03 | OP ---
CC: Dr. Abhi Marcos; [facility].* DATE OF OPERATION: 11/13/17 - ROOM #352 DATE OF : 70 SURGEON: Enrique Weiss MD PAPER GRADER: Dr. Ingram. ANESTHESIOLOGIST: Dr. Moreno. ANESTHESIA: General anesthesia. PRE-OP DIAGNOSIS: Abdominal pain, small bowel obstruction. POST-OP DIAGNOSIS: Internal hernia, twisted Adrian limb. OPERATIVE PROCEDURE: Diagnostic laparoscopy and revision of gastrojejunostomy. ESTIMATED BLOOD LOSS: Minimal. FLUIDS GIVEN: Crystalloid fluid given. SPECIMENS: Portion of gastrojejunostomy. DRAINS: #10 MAN drain left at the revised gastrojejunostomy. INDICATIONS: Ms. Mancini is a 47-year-old female 6 days status post Adrian-en-Y gastric bypass who presented with abdominal pain and what appeared to be a small bowel obstruction at the biliopancreatic limb. I have recommended surgical intervention, going over the risks, benefits, and alternatives to surgery. Spoke about the possibility of revision of anastomoses, possibility of open procedure, and the possibility of a remnant gastrotomy. PROCEDURE IN DETAIL: Consent was signed, she was marked, brought to the operating room and placed on the operating room table in a supine position. Preoperative antibiotics were given. Sequential compression devices were placed on bilateral lower extremities. General anesthesia was induced. The patient's abdomen was prepped and draped in the standard surgical fashion with Betadine and a time-out was performed. The previous given sutures were cut at the periumbilical incision first, we bluntly dissected into the abdominal cavity. There was minimal amount of free fluid along the incision site, but not intraabdominally. A 5-mm trocar was inserted into the abdomen which was then allowed to insufflate to a pressure of 5 mmHg. The patient tolerated the insufflation well. We next were able to upsize this 5 mm to a 12 mm bluntly and placed the camera through this. Camera review of the abdomen showed no free fluids, normal appearing small bowel. We then placed a 5 mm and a 12 mm in the right upper quadrant and then a 12 mm in the left upper quadrant. Review of the abdomen revealed quickly the jejunojejunostomy. This was grasped and we ran the Adrian limb up to the stomach pouch. This appeared intact; however , there seemed to be a twist within another portion of the jejunojejunostomy. It is unclear which. I did not attempt to reduce this at this point, but rather went to the terminal ileum, identified the terminal ileum, and then ran the bowel retrograde, removing the small intestine which was collapsed from behind the mesentry of the small bowel and the jejunojejunostomy. Once this was in its orientation into the pelvis, we then looked at the Adrian limb and this appeared to up to the stomach but with a 360 degree twist in it. Blunt dissection was utilized to free the omentum off the site and to clear what we are observing. We ran the biliopancreatic limb retrograde and this appeared intact. There was quite a floppy transverse mesentry. We could see it extending towards the site and disappearing under the Adrian limb. We went to the opposite side where the Adrian limb was lifted up and we could not see this proximal bowel that we had been running and assumed that this was going to be the biliopancreatic limb. The stitches to the mesenteric defect at the JJ appeared in the appropriate orientation and at this point there was no twisting at the JJ, but rather only a twist along the proximal Adrian limb as it extended towards the stomach pouch. Next, we placed a Maxime's retractor and retracted the liver anteriorly to the right. A 5-mm trocar had been inserted at the right upper quadrant. The stomach remnant appeared somewhat dilated, but not markedly so. The stomach pouch appeared intact. The gastrojejunostomy suture line and staple line appeared intact as well. However, it was clear that the twist in the Adrian limb had untwisted causing internal herniation and the obstruction of the biliopancreatic limb. Now, with the biliopancreatic limb appearing to be in the right spot, we decided the revise the gastrojejunostomy. Proximal mesentry was taken with a LigaSure device and we were able to cut across the proximal Adrian limb with a 60 mm farmer ARINA stapling device. Once this was transected, we could put it in the appropriate orientation. We did drop it down inferiorly and now held the transverse mesocolon anteriorly and at this point definitively identified the biliopancreatic limb and again its orientation was appropriate. Next, we went back to the stomach pouch, stay sutures of silk were then cut proximally along the stomach pouch to help with the dissection, these came off easily. The anastomosis appeared intact without any significant inflammation and without any exudative tissue. We did bluntly free up the staple line of the gastric remnant off of the anastomosis. Once this was performed, I could place a 60 mm farmer ARINA stapling device across the stomach portion of the gastrojejunostomy. This was performed with one firing and then we placed the small wedge of gastrojejunostomy in an endoscopic retrieval bag and placed it over the liver. The stomach pouch was still quite small, but the Adrian limb came up to this area without difficulty. The bowel wall of the proximal Adrian limb appeared intact and did not show any ischemic signs. Next, an Derrell tube was inserted by the anesthesiologist into the distal gastric pouch to see the sizing, this was backed off a little bit and then we applied 2-0 silk stay sutures at the Adrian limb to the gastric pouch. Once these were in place, the Derrell tube was reinserted into the distal pouch, which we then performed a gastrotomy over this with electrocautery. Enterotomy was made in the similar fashion and the two were mated with a 30 mm farmer ARINA stapling device. The common defect was reapproximated with 3-0 PDS suture starting superiorly and also inferiorly and tying them in the middle. Next the methylene blue dye test was performed, placing the Derrell tube through the anastomosis into the Adrian limb which was clamped distally with the gauze behind the site. Methylene blue injected into both the pouch and the proximal Adrian limb. The Derrell tube was backed up into the stomach pouch. No blue dye was appreciated after removal of the gauze. We looked up the cut edge of the stomach pouch right up to the diaphragm and there was no evidence of blue eye. Next the gauze was removed. I did place a separate U-stitch to a second layer at the distal suture line of the gastrojejunostomy just to sure this up and next a #10 MAN drain was inserted into the abdomen, brought out through the left lateral most port site. It was placed behind the anastomosis and under the liver as well as portion of it superiorly at the diaphragm. The abdomen was allowed to collapse. Trocars were removed under direct vision after the MAN drain was sutured to the skin with 3-0 Surgipro sutures. All additional skin incisions were reapproximated with 4-0 Monocryl subcuticular sutures. The Maxime's retractor was removed under direct vision and all incisions were dressed with sterile gauze and paper tape. The patient was woken up in the OR and transferred to the PACU in stable condition. [id number]/[facility] #: [id number] MTDD
[2017-11-14] MEDS: D5W 1/2 NS 1000 ML BAG* 1,000 ML IV SCH (16:01)
[2017-11-15] MEDS: D5W 1/2 NS 1000 ML BAG* 1,000 ML IV SCH (05:43)
[2017-11-15] MEDS: Ketorolac INJ* 30 MG/ML 1 ML VIAL IV PUSH PRN (05:44)
[2017-11-15] MEDS: Levothyroxine INJ* 100 MCG/5 ML VIAL IV SCH (05:45)
[2017-11-15] MEDS: Heparin VIAL(*) 5000 UNITS/ML VIAL (FIVE THOUSAND) SUBCUT SCH (05:46)
[2017-11-15 07:42] VITALS: BP 123/63
--- NOTE | 2017-11-15 07:45 | PN ---
Progress Note - Progress Note Date of Service: 11/15/17 SOAP: Subjective: []Pt seen and examined at bedside. Pt was standing and preparing to walk around unit. Pt reports she has been ambulating several times a day without difficulty. Reports mild "achy" abdominal pain throughout and mild distention. Pain controlled with PRN Toradol- last dose at 0545 this am. Reports flatulence. Denies nausea, vomiting, or diarrhea. Voiding regularly. Denies dysuria or hematuria. Tolerating clear liquids well. No fevers/chills. No chest pain or SOB. No calf pain or swelling. Patient expresses interest in possibly being discharged today as "I am doing well." Objective: [] Vital Signs 11/15/17 11/15/17 00:11 03:38 Temperature 98.6 F 98.4 F Pulse Rate 67 71 Respiratory 16 16 Rate Blood Pressure 106/62 119/63 (mmHg) O2 Sat by Pulse 94 95 Oximetry Const: Pt standing and walking easily throughout room. Pt is in NAD. Lungs: CTA in all acuña. No wheezing, rhonchi, or rales. Heart: RRR. Regular S1. Regular S1. No murmurs/rubs/gallop. Abdomen: Mild distention. Mild tenderness to palpation at epigastric area. Remaining abdomen nontender without rebound +BS throughout. MAN Drain: Moderate amount of serosainguenous fluid. Ext: Warm without edema. Assessment: [] Pt 2 days s/p diagnostic laparoscopic revision of gastrojejunostomy. Pt afebrile. VSS Pt ambulating and tolerating clear liquids well. Pain minimal and controlled with PRN Toradol. Plan: []Continue PRN pain control. Continue PRN zofran for nausea Continue DVT prophylaxis c/ SQ heparin Encouraged ambulation Continue clear liquids as tolerated. Discussed findings and plan with patient at bedside Will update and discuss with surgical team.
--- NOTE | 2017-11-15 09:50 | DS ---
Agree with below document. Additionally, introperative findings discussed with pt and family. their questions were answered. AMENDED REPORT NOW INCLUDES COSIGNER DESIGNATION - ESIGNED BEFORE ADJUSTMENT CC: Dr. Abhi Marcos * DATE OF ADMISSION: 11/13/2017. DATE OF DISCHARGE: 11/15/2017. ATTENDING SURGEON: Dr. Enrique Weiss * (ROSANNA Pope dictating). HOSPITAL COURSE: The patient presented with abdominal pain and signs of obstruction, status post laparoscopic Adrian-en-Y gastric bypass on 11/07/2017. She was taken back to the operating room on 11/13/[address] Weiss and underwent revision of the gastrojejunostomy secondary to obstruction which was secondary to a twist in the Adrian limb. A Bernardo-Ordaz drain was left in place. She had an upper GI study the following morning which was normal and she began bariatric clear liquids. She has otherwise progressed in terms of pain control and oral intake and is deemed ready for discharge the morning of . She was seen and examined by Dr. Weiss. Vital signs the morning of discharge: Temperature 98.1, blood pressure 123/63, pulse 84, respirations 18, room air saturation 96 percent. MAN drainage 30 cc over the last 24 hours described as serosanguineous. IMPRESSION: Status post revision Adrian-en-Y gastric bypass, doing well. PLAN: Home today with MAN drain. She will resume her usual Synthroid. She has a follow-up scheduled with Dr. Weiss for 11/20/2017 at the [facility]. ROSANNA POPE [id number]/[facility] #: [id number] [facility]
== END 2017-11-15 11:25 | disposition home or self-care (01) | DRG 223 ==
LOC: ED 03:46 → SSU 08:02
PROVIDERS: ADMIT Surgery; ATTEND Surgery
PROC: 0DB64ZZ Excision of Stomach, Percutaneous Endoscopic Approach (ICD-10-PCS; 2017-11-13)
PROC: 0DH64UZ Insertion of Feeding Device into Stomach, Percutaneous Endoscopic Approach (ICD-10-PCS; 2017-11-13)
PROC: 0DBA4ZZ Excision of Jejunum, Percutaneous Endoscopic Approach (ICD-10-PCS; principal; 2017-11-13 11:45)
DX: K95.89 Other complications of other bariatric procedure (principal); K91.30 Postprocedural intestinal obstruction, unspecified as to partial versus complete; K46.0 Unspecified abdominal hernia with obstruction, without gangrene; J45.909 Unspecified asthma, uncomplicated; M16.0 Bilateral primary osteoarthritis of hip; G47.33 Obstructive sleep apnea (adult) (pediatric); K44.9 Diaphragmatic hernia without obstruction or gangrene; Y83.8 Other surgical procedures as the cause of abnormal reaction of the patient, or of later complication, without mention of misadventure at the time of the procedure; Y92.234 Operating room of hospital as the place of occurrence of the external cause; E03.9 Hypothyroidism, unspecified; R11.0 Nausea; E66.01 Morbid (severe) obesity due to excess calories; Z88.0 Allergy status to penicillin; Z88.1 Allergy status to other antibiotic agents; Z87.01 Personal history of pneumonia (recurrent); Z90.49 Acquired absence of other specified parts of digestive tract; Z98.51 Tubal ligation status; Z68.37 Body mass index [BMI] 37.0-37.9, adult; Z82.49 Family history of ischemic heart disease and other diseases of the circulatory system; Z83.3 Family history of diabetes mellitus; Z83.6 Family history of other diseases of the respiratory system; Z80.0 Family history of malignant neoplasm of digestive organs
CPT/HCPCS: 36415; 74177; 74246; 80053; 81003; 82150; 83690; 83735; 85025; 86140; 88304; 99284; A9270-GY; J0330; J0461; J1100; J1170; J1644; J1885; J2704; J2765; J3010; Q9967

== ENCOUNTER 2018-07-11 12:18 | Observation (INO) | payer BC ==
--- OUTSIDE RECORDS SUMMARY | 2018-07-11 12:31 | XMS REPORT ---
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 Laboratory test finding 08/12/2008 TSH 0.24 mIU/L Low 0.50-6.00 8 Free T4 1.63 ng/dL High 0.75-1.54 8 Comp Stat 12/10/2007 Sodium 138 mmol/L 135-145 Potassium 4.3 mmol/L 3.5-5.0 Chloride 108 mmol/L 101-111 Co2 (Carbon Dioxide) 27.0 mmol/L 22-32 Anion Gap 3.0 mmol/L 2-11 9 Glucose 99 mg/dL 70-105 BUN 13 mg/dL 6-24 Creatinine 0.8 mg/dL 0.5-1.4 One Over Creatinine 1.25 BUN/Creatinine Ratio 16.3 8-20 Calcium 8.5 mg/dL 8.1-9.9 10 Total Protein 6.9 GM/DL 6.2-8.1 Albumin 3.5 GM/DL Low 3.6-5.4 Globulin 3.4 GM/DL 2-4 Albumin/Globulin Ratio 1.0 1-3 Bilirubin Total 0.7 mg/dL 0.4-1.5 Alkaline Phosphatase 56 U/L 30-110 Alt (SGPT) 20 U/L 14-54 Ast (Sgot) 22 U/L 12-42 Urinalysis W/Microscopic Stat 12/10/2007 Ua Color YELLOW Appearance-Urine CLEAR Specific [place]-Ur 1.022 1.010-1.030 Esterase-Urine TRACE Negative Nitrite NEGATIVE Negative [id number] NEGATIVE Negative Protein-Urine NEGATIVE Negative PH-Urine 5.0 5-9 Blood-Urine NEGATIVE Negative Ketones-Urine NEGATIVE Negative Bilirubin-Ur NEGATIVE Negative Glucose-Urine NEGATIVE Negative WBC-Urine 1-5 0-5 RBC-Urine NONE SEEN 0-2 Mucus Urine SMALL Epith Cells-Ur MODERATE Bacteria-Urine 1+ CBC With Electronic Diff Stat 12/10/2007 White Blood Count 7.5 CUMM 4.8- 10.8 Red Cell Count 4.12 CUMM Low 4.2-5.4 Hemoglobin 12.0 g/dL 12.0-16.0 Hematocrit 35 % 35-47 Mean Corpuscular Volume 85 um3 79-97 Mean Corpuscular Hemoglob 29 pg 27-31 Mean Corpuscular HGB Cone 34 g/dL 32-36 Redcell Distribution WDTH 13 % 10.5-15 Platelet Count 250 CUMM 150-450 Mean Platelet Volume 8.1 um3 7.4-10.4 Gran % 51.3 % 38-83 Lymph % 37.2 % 20-45 Mononuclear % 7.3 % 1-9 Eosinophil % 3.5 % 0-6 Basophil % 0.7 % 0-2 Abs Lymphs 2.8 1.0-4.8 Abs Mononuclear 0.6 0-0.8 Absolute Neutrophil Count 3.9 1.5-7.7 Abs Eosinophils 0.3 0-0.6 Abs Basophils 0.1 0-0.2 CBC With Manual Diff Stat 11/23/2007 White Blood Count 9.9 CUMM 4.8-10.8 Red Cell Count 4.70 CUMM 4.2-5.4 Hemoglobin 13.4 g/dL 12.0-16.0 Hematocrit 39 % 35-47 Mean Corpuscular Volume 83 um3 79-97 Mean Corpuscular Hemoglob 29 pg 27-31 Mean Corpuscular HGB Cone 34 g/dL 32-36 Redcell Distribution WDTH 14 % 10.5-15 Platelet Count 278 CUMM 150-450 Mean Platelet Volume 7.6 um3 7.4-10.4 Polysegmented Neutrophil 85 % High 38-83 Band Neutrophil 3 % 0-8 Lymphocyte 7 % 5-47 Monocyte 4 % 0-13 Eosenophil 1 % 0-6 Absolute Neutrophil Count 8.7 Anisocytosis SLIGHT HCG Qualitative Stat 11/23/2007 Serum Qual HCG NEGATIVE Negative 11 Laboratory test finding 11/23/2007 Amylase 87 U/L 30-125 Lipase 18 U/L Low 22-51 Laboratory test finding 11/23/2007 Stool For Blood NEGATIVE Negative Comp Stat 11/23/2007 Sodium 141 mmol/L 135-145 Potassium 4.1 mmol/L 3.5-5.0 Chloride 109 mmol/L 101-111 Co2 (Carbon Dioxide) 25.0 mmol/L 22-32 Anion Gap 7.0 mmol/L 2-11 12 Glucose 105 mg/dL 70-105 BUN 19 mg/dL 6-24 Creatinine 0.7 mg/dL 0.5-1.4 One Over Creatinine 1.42 BUN/Creatinine Ratio 27.1 High 8-20 Calcium 8.9 mg/dL 8.1-9.9 13 Total Protein 6.9 GM/DL 6.2-8.1 Albumin 3.8 GM/DL 3.6-5.4 Globulin 3.1 GM/DL 2-4 Albumin/Globulin Ratio 1.2 1-3 Bilirubin Total 0.7 mg/dL 0.4-1.5 Alkaline Phosphatase 70 U/L 30-110 Alt (SGPT) 46 U/L 14-54 Ast (Sgot) 46 U/L High 12-42 Laboratory test finding 12/13/2006 TSH 4.79 mIU/L 0.50-6.00 Free T4 1.07 ng/dL 0.75-1.54 Laboratory test finding 07/30/2006 Flu A&B POSITIVE Negative Laboratory test finding 2005 TSH ([facility]) 1.27 uIU/ml 0.5- 6.0 Free T4 (Fma/[facility]rex) 1.39 ng/dL 0.75-1.54 Laboratory test finding 09/04/2005 Quickstrep NEGATIVE Negative Throat - Beta Strep Fma NEGATIVE@48HRS Free T4/TSH 08/16/2005 TSH (Fma/[facility]) 0.05 uIU/ml Low 0.5-6.0 (Fma/CMC/[facility]rex) Free T4 (Fma/[facility]rex) 1.72 ng/dL High 0.75-1.54 Laboratory test 07/16/2005 [facility] Labs THROAT BETA See Image Report finding STREP Laboratory test 05/17/2005 TSH 0.45 uIU/ml Low 0.5-6.0 finding ([facility]/[place] x) Free T4 ([facility]) 2.11 ng/dL High 0.75-1.54 Free T4/TSH 10/26/2004 TSH ([facility]) 0.04 uIU/ml Low 0.5-6.0 ([facility]) Free T4 1.57 ng/dL High 0.75-1.54 Free T4/TSH 07/23/2003 TSH ([facility]) 1.75 uIU/ml 0.5-6.0 ([facility]) Free T4 1.33 ng/dL 0.75-1.54 Ua - Micro ([facility]) 07/23/2003 Appearance HAZY Color LIGHT YELLOW Glucose NEGATIVE Bilirubin NEGATIVE Ketones NEGATIVE SP Grav 1.020 Blood NEGATIVE LMP 06/25/03 PH 7.0 Protein NEGATIVE Urobil 0.2 Nitrite NEGATIVE Leukocytes SMALL Hyaline - /Lpf Granular - /Lpf WBC'S 6-8 RBC'S 1-2 Mucus SMALL /Lpf Epith MODERATE Bacteria 2+ Amorphous - /Lpf Crystals - /Lpf Comments NOT A CLEAN Catch Laboratory test 06/25/2003 Throat - Beta Strep NEGATIVE @48 HRS finding Laboratory test 06/23/2003 Quickstrep NEGATIVE Negative finding Free T4/TSH 01/29/2003 TSH 0.02 uIU/ml Low 0.5-6.0 ([facility]) Free T4 1.99 ng/dL High 0.75-1.54 Laboratory test 01/20/2003 Hematocrit ([facility]/CTX) 40 % 36.1 - 50.3 finding Laboratory test 10/04/2002 Throat - Beta Strep NEGATIVE Final finding Free T4/TSH Profile 12/17/2001 Free T4 0.88 ng/dL 0.7-1.55 ([facility]) TSH 2.39 0.4-4.2 Free T4/TSH Profile ([facility]) 10/21/2001 Free T4 0.91 ng/dL 0.7-1.55 TSH 8.08 0.4-4.2 Laboratory test finding 02/28/2001 TSH 4.56 High 0.4-4.2 1 Because ethnic data is not always readily available, this report includes an eGFR for both -Americans and non- Americans. The National Kidney Disease Education Program (NKDEP) does not endorse the use of the MDRD equation for patients that are not between the ages of 18 and 70, are , have extremes of body size, muscle mass, or nutritional status, or are non- or non-. According to the National Kidney Foundation, irrespective of diagnosis, the stage of the disease is based on the level of kidney function: Stage Description GFR(mL/min/1.73 m(2)) 1 Kidney damage with normal or decreased GFR 90 2 Kidney damage with mild decrease in GFR 60-89 3 Moderate decrease in GFR 30-59 4 Severe decrease in GFR 15-29 5 Kidney failure <15 (or dialysis) 2 Acute inflammation: >10.00 3 SEE RESULT BELOW Name: ARGENIS HARTLEY Jasiel : [address]: Hieu Larkin MD Acct: [id number] Unit: [id number] AGE: 46 Location: ENDO Re08/13/17 SEX: F Status: REG REF SPEC: [id number] STEPHANIA: 08/13/17-1454 [facility] DR: Hieu Larkin MD REQ: [id number] RECD: 08/13/17 STATUS: JEFF BURROWS DR: Abhi Marcos MD _ SOURCE: GAS [facility]: ORDERED: Clotest Procedure Result Reported Site Clotest Final 08/14/17- 735 ML Clotest Negative * ML - MAIN LAB ([facility]) . END OF REPORT * ML=Testing performed at Main Lab DEPARTMENT OF PATHOLOGY, [address] [place] [address] Lam Fowler M.D. Director [facility] # [id number] 4 Therapeutic target for the treatment of diabetes mellitus patients is <7% HBA1C, and in selective patients <6.0%. Please refer to [place] [employer] diabetic care guidelines for further information. 5 RESULTS VERIFIED BY REPEAT ANALYSIS 6 RESULT ABBI'D 7 RESULT ABBI'D 8 FASTING 9 Anion gap measurement may be of limited value in the presence of any alkalosis, especially in a combined acid base disorder. . 10 Please note change in reference range effective 07 . 11 If is still suspected, please repeat test after 48 to 72 hours. . 12 Anion gap measurement may be of limited value in the presence of any alkalosis, especially in a combined acid base disorder. . 13 Please note change in reference range effective 07 . Procedures Date CPT Code Description Status 08/13/2017 Colonoscopy Completed 03/24/2015 29764 Pulse Oximetry Completed 10/12/1999 67975 Excise Benign Lesion .6-1CM Trunk/Arm/Leg Completed Encounters Type Date Location Provider CPT E/M Dx Office Visit 04/30/2018 8:00p Main Office Abhi Marcos M.D. 63638 E03.8 Office Visit 09/18/2017 10:20a Main Office Abhi Marcos M.D. 02894 Z00.01 E03.8 E66.09 M25.552 M25.551 E78.4 R82.99 Office Visit 05/18/2017 4:40p Main Office Abhi Marcos M.D. 53272 E03.8 E66.09 M25.552 M25.551 Office Visit 01/23/2017 11:40a Main Office Abhi Marcos M.D. 36005 E03.8 E66.09 L20.89 J30.2 J01.80 Office Visit 07/19/2015 2:40p Main Office Abhi Marcos M.D. 43851 E03.8 E66.09 M25.552 Office Visit 06/09/2015 10:45a [facility] Office Edwige Rivera 69303 J02.9 B00.0 E66.3 Office Visit 03/24/2015 1:30p [facility] Edwige Rivera 41384 J67.8 Office Visit 12/04/2014 2:45p [facility] Office [place] 41355 053.9 Office Visit 10/09/2014 10:00a [facility] Office [place] 01726 462 784.0 Office Visit 10/05/2014 3:20p Main Office Abhi Marcos M.D. 62620 V70.0 244.9 278.00 493.90 599.72 Office Visit 05/22/2014 1:20p Main Office Abhi Marcos M.D. 23553 244.9 278.00 Office Visit 10/01/2013 6:30p Main Office Cassandra Velasquez, [facility] 28753 354.0 Office Visit 09/15/2013 10:15a [facility] Laquita Reynaga, [facility] 56977 780.60 493.92 Office Visit 02/11/2013 5:10p Main Office Abhi Marcos M.D. 84703 244.9 278.00 Office Visit 12/31/2012 5:40p Main Office Abhi Marcos M.D. 00858 244.9 278.00 493.90 Office Visit 04/26/2012 2:30p Main Office Cassandra Jonesrer, [facility] 36934 493.90 Office Visit 11/28/2011 4:00p Main Office Abhi Marcos M.D. 54122 244.9 278.00 Office Visit 04/06/2011 8:10a [facility] Abhi Marcos M.D. 02029 V04.81 244.9 278.00 054.79 Office Visit 12/15/2010 2:00p [facility] Abhi Marcos M.D. 66971 244.9 278.00 272.4 Office Visit 10/01/2009 3:00p Main Office Abhi Marcos M.D. 99762 244.9 278.00 Office Visit 07/27/2009 4:15p [facility] Latisha Be carlos 97164 535.40 Office Visit 04/02/2009 3:10p Main Office Abhi Marcos M.D. 88069 724.2 599.0 Office Visit 07/28/2008 7:00p Main Office Abhi Marcos M.D. 25105 244.9 278.00 Office Visit 08/01/2007 2:50p [facility] Abhi Marcos M.D. 34263 244.9 278.00 Office Visit 12/13/2006 11:00a [facility] Abhi Marcos M.D. 58279 244.9 278.00 Office Visit 11/13/2006 9:45a [facility] Edwige Aguilar 85836 462 Office Visit 08/02/2006 8:40a [facility] Abhi Marcos M.D. 63623 487.1 486 511.0 Office Visit 07/30/2006 12:10p Main Office Abhi Marcos M.D. 60669 465.9 786.2 487.1 Office Visit 2005 11:50a [facility] Abhi Marcos M.D. 99928 682.0 244.9 Office Visit 09/21/2005 2:00p [facility] Laquita Pierce 98828 380.13 Felicita 035 Office Visit 09/04/2005 3:00p [facility] Ever Toth M.D. 43205 462 Office Visit 05/05/2005 1:15p [facility] Edwige Rivera 97347 461.0 Office Visit 10/26/2004 9:00a Main Office Abhi Marcos M.D. 60959 244.9 Office Visit 05/16/2004 7:30p Main Office CHE[place] Diaz 10526 490 Office Visit 02/18/2004 9:00a [facility] Abhi Marcos M.D. 90189 454.1 244.9 Office Visit 07/23/2003 2:50p [facility] Abhi Marcos M.D. 22357 599.0 244.9 Office Visit 06/23/2003 3:30p [facility] Edwige Aguilar 40960 465.9 462 Office Visit 01/29/2003 3:10p [facility] Abhi Marcos M.D. 78996 244.9 782.1 Office Visit 01/20/2003 9:15a [facility] Edwige Aguilar 30017 706.1 787.02 V12.3 Office Visit 05/05/2002 8:40p Main Office Abhi Marcos M.D. 90640 244.9 Office Visit 03/24/2002 6:00p Main Office Abhi Marcos M.D. 24508 Office Visit 12/17/2001 7:10p Main Office Abhi Marcos M.D. 01738 Office Visit 10/21/2001 7:10p Main Office Abhi Marcos M.D. 47720 Office Visit 02/28/2001 1:40p [facility] Abhi Marcos M.D. 03965 Office Visit 08/28/2000 9:30a Main Office Edwige Aguilar 73544 Office Visit 07/12/2000 11:00a [facility] Abhi Marcos M.D. 89585 Office Visit 05/15/2000 4:30p Main Office Edwige Aguilar 13396 Plan of Care Future Appointment(s):10/31/2018 3:20 pm - Abhi Marcos M.D. at [facility] [id number]/19/2018 - Laquita Reynaga, [id number] CoughNew Medication:Medrol 4 mgComments:start with medrol, only add antibiotics as eufnwxesiZ88.998 Other asthma
--- NOTE | 2018-07-11 14:39 | ED ---
Abdominal Pain/Female - HPI Summary HPI Summary: This patient is a 47 year old female presenting to [facility] with a cc of left flank and rib pain that began yesterday. She states the pain migrated into the right side of her ABD but states it dissipated. Today she felt ok and was able to work out. At 1145 she went on break and ate two boiled eggs and tea and has been in pain since. She compares the pain to a side stitch that develops when running. The patient rates the pain 8/10 in severity. She also c/o nausea, and feeling shakey. Hx bariatric surgery last october. - History of Current Complaint Chief Complaint: EDAbdPain Stated Complaint: LEFT ABD/FLANK PAIN Time Seen by Provider: 07/11/18 14:29 Hx Obtained From: Patient Hx Last Menstrual Period: 06/08/16 Onset/Duration: Lasting Days, Still Present Timing: Intermittent Episode Lasting Severity Initially: Moderate Severity Currently: Moderate Pain Intensity: 8 Pain Scale Used: 0-10 Numeric Location: Discrete At: RUQ, Discrete At: RLQ, Other - l flank and ribs Radiates: No Associated Signs and Symptoms: Positive: Nausea Allergies/Adverse Reactions: Allergies Allergy/AdvReac Type Severity Reaction Status Date / Time erythromycin base Allergy Anaphylatic Verified 07/11/18 12:23 Shock hydromorphone [From Dilaudid] Allergy Hives Verified 07/11/18 18:16 morphine Allergy Hives Verified 07/12/18 04:46 Penicillins Allergy Anaphylatic Verified 07/11/18 12:23 Shock Home Medications: Home Medications Albuterol Sulfate [Proventil Hfa] 2 puff INH Q4HR PRN 07/11/18 [History Confirmed 07/11/18] Levothyroxine TAB* [Synthroid TAB*] 125 mcg PO DAILY 07/11/18 [History Confirmed 07/11/18] PMH/Surg Hx/FS Hx/Imm Hx Endocrine/Hematology History: Reports: Hx Thyroid Disease, Hx Anemia - reports occas borderline Denies: Hx Diabetes Cardiovascular History: Denies: Hx Deep Vein Thrombosis, Hx Hypertension Respiratory History: Reports: Hx Asthma, Hx Sleep Apnea - just diagnosed, no CPAP yet, Other Respiratory Problems/Disorders - pnuemonia 5-7 yrs ago Denies: Hx Chronic Obstructive Pulmonary Disease (COPD) GI History: Reports: Hx Hiatal Hernia - reports small one found during EGD Denies: Hx Ulcer Musculoskeletal History: Reports: Hx Arthritis - hips Denies: Hx Scoliosis Sensory History: Reports: Hx Contacts or Glasses - driving glasses only Denies: Hx Hearing Aid Opthamlomology History: Reports: Hx Contacts or Glasses - driving glasses only Neurological History: Denies: Hx Headaches, Other Neuro Impairments/Disorders - Surgical History Surgery Procedure, Year, and Place: cholecystectomy (reports "nicked" liver) - [facility] [place]. tubal ligation 1999 - [facility] [place]. vein stripping bilateral legs - [facility] [place] Hx Anesthesia Reactions: No Infectious Disease History: No Infectious Disease History: Reports: Hx of Known/Suspected MRSA - reports on face in 2007, Hx Shingles - reports on right arm 2014 Denies: Hx Clostridium Difficile, Hx Hepatitis, Hx Human Immunodeficiency Virus (HIV), Hx Tuberculosis, Hx Known/Suspected VRE, Hx Known/Suspected VRSA, History Other Infectious Disease, Traveled Outside the in Last 30 Days - Family History Known Family History: Positive: Cardiac Disease - grandfather, Diabetes, Respiratory Disease, Other - colon CA - father - Social History Alcohol Use: Occasionally Substance Use Type: Reports: None Smoking Status (MU): Never Smoked Tobacco Review of Systems Positive: Abdominal Pain, Nausea Positive: flank pain - left Musculoskeletal: Other - left rib pain Neurological: Other - "feels shakey" All Other Systems Reviewed And Are Negative: Yes Physical Exam - Summary Physical Exam Summary: Appearance: The patient is well-nourished in no acute distress and in no acute pain. Skin: The skin is warm and dry and skin color reflects adequate perfusion. HEENT: The head is normocephalic and atraumatic. The pupils are equal and reactive. The conjunctivae are clear and without drainage. Nares are patent and without drainage. Mouth reveals moist mucous membranes and the throat is without erythema and exudate. The external ears are intact. The ear canals are patent and without drainage. The tympanic membranes are intact. Neck: The neck is supple with full range of motion and non-tender. There are no carotid bruits. There is no neck vein distension. Respiratory: Chest is non-tender. Lungs are clear to auscultation and breath sounds are symmetrical and equal. Cardiovascular: Heart is regular rate and rhythm. There is no murmur or rub auscultated. There is no peripheral edema and pulses are symmetrical and equal. Abdomen: The abdomen is soft and diffusely tender. There are normal bowel sounds heard in all four quadrants and there is no organomegaly palpated. No rebound Musculoskeletal: There is no back tenderness noted. Extremities are non-tender with full range of motion. There is good capillary refill. There is no peripheral edema or calf tenderness elicited. Neurological: Patient is alert and oriented to person, place and time. The patient has symmetrical motor strength in all four extremities. Cranial nerves are grossly intact. Deep tendon reflexes are symmetrical and equal in all four extremities. Psychiatric: The patient has an appropriate affect and does not exhibit any anxiety or depression. Triage Information Reviewed: Yes Vital Signs On Initial Exam: Initial Vitals Temp Pulse Resp BP Pulse Ox 98.1 F 83 18 142/71 100 07/11/18 12:20 07/11/18 12:20 07/11/18 12:20 07/11/18 12:20 07/11/18 12:20 Vital Signs Reviewed: Yes Diagnostics - Vital Signs Vital Signs Temp Pulse Resp BP Pulse Ox 07/11/18 12:20 98.1 F 83 18 142/71 100 - Laboratory Result Diagrams: 07/12/18 04:56 07/12/18 04:56 Lab Statement: Any lab studies that have been ordered have been reviewed, and results considered in the medical decision making process. - CT CT ABD/Pelvis CT Interpretation Completed By: Radiologist Summary of CT Findings: 1. There is no evidence of leakage outside the bowel lumen status post gastrojejunostomy. 2. There is no evidence of obstructive uropathy. 3. No visible acute inflammatory change of the gastrointestinal tract. ED physician has reviewed this radiology report. Abdominal Pain Fem Course/Dx - Course Course Of Treatment: Ms. Mancini presented with the fairly acute onset of severe abdominal pain. She was in obvious distress on arrival but her vitals were stable. Her initial laboratory work was reasonable and a CT scan was being obtained. She has a history of having a Adrian-en-Y not too long ago and Dr. Kennedy came to the emergency department to evaluate her and elected to admit her. - Diagnoses Provider Diagnoses: Diffuse abdominal pain - Provider Notifications Discussed Care Of Patient With: Enrique Weiss Time Discussed With Above Provider: 17:13 Instructed by Provider To: Admit As Inpatient - He has examined the patient and he admitted the patient. Discharge - Sign-Out/Discharge Documenting (check all that apply): Patient Departure - admitted - Discharge Plan Condition: Stable Disposition: HOME - Billing Disposition and Condition Condition: STABLE Disposition: Home - Attestation Statements Document Initiated by Oxana: Yes Documenting Scribe: Sai Lopez Provider For Whom Oxana is Documenting (Include Credential): Toro Barrett MD Scribe Attestation: Sai Oh , scribed for Toro Barrett MD on 07/12/18 at 1011. Scribe Documentation Reviewed: Yes Provider Attestation: The documentation as recorded by the Sai jalloh accurately reflects the service I personally performed and the decisions made by me, Toro Barrett MD Status of Scribe Document: Viewed
[2018-07-11] MEDS ORDERED: Ondansetron INJ* 2 MG/ML VIAL IV ONE (14:43)
[2018-07-11] MEDS ORDERED: HYDROmorphone INJ1* 1 MG/ML SYRINGE IV SLOW PU ONE (14:43)
[2018-07-11] MEDS ORDERED: NS 0.9% 1000 ML* 1,000 ML IV ONE (14:43)
[2018-07-11 15:11] LABS: ABS Basophils 0 10^3/ul (0-0.2); ABS Eosinophils 0.1 10^3/ul (0-0.6); ABS Lymphocytes 1.1 10^3/ul (1.0-4.8); ABS Monocytes 0.4 10^3/ul (0-0.8); ABS Neutrophils 4.4 10^3/ul (1.5-7.7); ABS Nucleated RBC 0 10^3/ul; Eosinophil % 1.5 %; Hematocrit 35 % (35-47); Hemoglobin 11.6 g/dl (12.0-16.0); Lymphocyte % 18.9 %; Mean Corpuscular HGB Conc 33 g/dl (31-36); Mean Corpuscular Hemoglobin 29 pg (27-31); Mean Corpuscular Volume 88 fL (80-97); Mean Platelet Volume 8.2 fL (7.4-10.4); Nucleated Red Blood Cells % 0; Platelet Count 210 10^3/ul (150-450); Red Blood Count 3.97 10^6/ul (4.00-5.40); Red Cell Distribution Width 14 % (10.5-15); White Blood Count 6.1 10^3/ul (3.5-10.8)
[2018-07-11 15:26] LABS: ALT 11 U/L (7-52); AST 17 U/L (13-39); Albumin 4.2 g/dL (3.2-5.2); Albumin/Globulin Ratio 1.3 (1-3); Alkaline Phosphatase 67 U/L (34-104); Anion Gap 8 mmol/L (2-11); BUN/Creatinine Ratio 29.7 (8-20); Blood Urea Nitrogen 19 mg/dL (6-24); C Reactive Protein 3.01 mg/L (<8.01); CO2 Carbon Dioxide 25 mmol/L (22-32); Calcium 9.6 mg/dL (8.6-10.3); Chloride 104 mmol/L (101-111); EGFR African American 120.4 (>60); EGFR Non-African American 99.5 (>60); Globulin 3.3 g/dL (2-4); Glucose 102 mg/dL (70-100); Potassium 4.2 mmol/L (3.5-5.0); Sodium 137 mmol/L (135-145); Total Protein 7.5 g/dL (6.4-8.9)
[2018-07-11 15:32] LABS: HCG Pregnancy < 0.60 mIU/mL
[2018-07-11] MEDS ORDERED: Ondansetron INJ* 2 MG/ML VIAL IV PRN (16:48)
[2018-07-11] MEDS ORDERED: Morphine VIAL* 4 MG/ML VIAL (1 ml vial) IV PRN (16:51)
[2018-07-11] MEDS ORDERED: Iohexol 300* (CONTRAST) 10 ML SDV IV ONE (17:08)
[2018-07-11] MEDS ORDERED: Morphine INJ* 2 MG/ML 1 ML SYRINGE (TWO MG - NEW SYRINGE VERSION) ONE (19:09)
[2018-07-11] MEDS: Lactated Ringers 1000 ML Bag* 1,000 ML IV SCH (19:21)
[2018-07-11] MEDS ORDERED: diPHENhydraMINE IV* 50 MG/ML 1 ml VIAL (BENADRYL) IV PRN (19:35)
[2018-07-11] MEDS ORDERED: Ketorolac INJ* 30 MG/ML 1 ML VIAL IV PRN (19:37)
--- NOTE | 2018-07-11 20:17 | HP ---
CC: Dr. Abhi Marcos; [facility] * HISTORY AND PHYSICAL: DATE OF ADMISSION: 07/11/18 LOCATION: The patient was seen in the emergency room on 07/11/18. HISTORY OF PRESENT ILLNESS: Ms. Mancini is a 47-year-old female who is just over 8 months status post Adrian-en-Y gastric bypass procedure. Postoperative course was complicated with return to the operating room within a week for revision of gastrojejunostomy. The patient had been doing well up until yesterday when she complained of having left upper quadrant pain that extended into her ribcage. She rested and it improved somewhat after couple hours. She woke up this morning, and after eating an egg, it repeated itself, this time more severe and the patient called our offices to be seen. She was given a 2 o'clock appointment time and felt that the pain was too severe and was directed to the emergency room. In the emergency room, the patient has had labs drawn. She had IV Dilaudid given which gave her relief to the pain, but did give a topical response to the skin and new IV was placed. The patient describes the pain as a knife-like pain at the left upper quadrant under the ribcage. It does not extend to the back or the flank. It is accompanied with decreased appetite. The patient is passing minimal flatus. She is not burping or having nausea. Currently, pain seems to be moving elsewhere on her abdomen and she describes pain more in the right upper quadrant midline. The patient denies any similar symptoms in the past. She has had history of dumping syndrome on few episodes that is resolved after 20 minutes. Usually, this is due to eating too fast or certain foods. The patient does stay away from meat with the exception of chopped beef. She will eat vegetables and protein. She is overall doing well and now has a body mass index of 25. PAST MEDICAL HISTORY: Includes hypothyroidism, asthma, osteoarthritis, sleep apnea. PAST SURGICAL HISTORY: Cholecystectomy, tubal ligation, vein stripping, and gastric bypass. MEDICATIONS: Include: 1. Multivitamin. 2. Synthroid. 3. Zofran as needed. ALLERGIES: She has allergy to PENICILLINS and ERYTHROMYCIN BASE and possible DILAUDID. SOCIAL HISTORY: Negative x3. She works. REVIEW OF SYSTEMS: No fevers or chills. No nausea or vomiting. Abdominal pain as described. Decreased appetite as described. No back pain. No dysuria. No change in bowel habits. She is not obstipated, but describes last flatus earlier today. No bleeding or clotting disorders, but she did have bleeding at the liver site at gallbladder surgery remotely according to the patient. PHYSICAL EXAMINATION GENERAL: Alert and oriented x3, in no apparent distress. She is breathing somewhat heavily on my evaluation, but then calms down. VITAL SIGNS: She is afebrile. Vital signs are stable. Respirations 18 on arrival, measured at 28 later in her ER visit. Pulse 83. HEENT: Normocephalic, atraumatic. Sclerae are anicteric. Mucous membranes are dry. LUNGS: Clear. ABDOMEN: Consistent with significant weight loss with redundant skin. Tenderness in the upper abdomen with some involuntary guarding, but negative rebound. No hernias are noted. EXTREMITIES: Within normal limits. RECTAL: Exam not performed. DIAGNOSTIC STUDIES/LAB DATA: Labs reviewed and are within normal limits including lipase level, LFTs. H and H of 11.6/35, reference range is 12 to 16 as far as hemoglobin with hematocrit low normal of 35. The patient is pending CT scan. She had gone for it before the Dilaudid was given and had the response and held off this study. IMPRESSION AND PLAN: Differential diagnosis includes internal hernia as well as dumping syndrome. Recommendation is CT scan. If the CT scan shows minimal changes, we will look towards observation with likely operating room tomorrow for diagnostic laparoscopy. If there is free fluid or any significant small bowel changes or twisting to suggest internal hernia, this patient will be better served in the operating room. We will towards earlier attempt at diagnostic laparoscopy if possible. The patient understands the plan. She would like to stay out of the operating room, but I did discuss with her that if she does not show improvement by tomorrow that we would likely do this and that we would likely do it sooner if any changes occur during this early hospitalization. The patient's questions were answered. She will get admitted , IV fluids, n.p.o. status, and pain control. [id number]/[facility] #: [id number] BILL
[2018-07-12] MEDS: Lactated Ringers 1000 ML Bag* 1,000 ML IV SCH ×2 (04:48→11:40)
[2018-07-12 05:21] LABS: ABS Basophils 0 10^3/ul (0-0.2); ABS Eosinophils 0.1 10^3/ul (0-0.6); ABS Lymphocytes 1.8 10^3/ul (1.0-4.8); ABS Monocytes 0.4 10^3/ul (0-0.8); ABS Nucleated RBC 0 10^3/ul; Eosinophil % 2.7 %; Hematocrit 31 % (35-47); Hemoglobin 10.3 g/dl (12.0-16.0); Lymphocyte % 34.2 %; Mean Corpuscular HGB Conc 33 g/dl (31-36); Mean Corpuscular Hemoglobin 29 pg (27-31); Mean Corpuscular Volume 88 fL (80-97); Mean Platelet Volume 8.2 fL (7.4-10.4); Nucleated Red Blood Cells % 0.1; Platelet Count 191 10^3/ul (150-450); Red Blood Count 3.53 10^6/ul (4.00-5.40); Red Cell Distribution Width 14 % (10.5-15); White Blood Count 5.4 10^3/ul (3.5-10.8)
[2018-07-12 05:39] LABS: Albumin 2.9 g/dL (3.2-5.2); BUN/Creatinine Ratio 22.8 (8-20); C Reactive Protein 4.02 mg/L (<8.01); Calcium 8.8 mg/dL (8.6-10.3); EGFR African American 137.6 (>60); EGFR Non-African American 113.7 (>60); Globulin 2.8 g/dL (2-4); Potassium 3.7 mmol/L (3.5-5.0); Total Bilirubin 0.4 mg/dL (0.2-1.0); Total Protein 5.7 g/dL (6.4-8.9)
[2018-07-12] MEDS ORDERED: Pantoprazole IV* 40 MG IV SCH ×2 (10:15)
[2018-07-12] MEDS ORDERED: Midazolam* 1 MG/ML 10 ML VIAL (10 MG) ONE (15:07)
[2018-07-12] MEDS ORDERED: fentaNYL* 50 MCG/ML 2 ML VIAL (100 MCG VIAL) ONE (15:07)
--- NOTE | 2018-07-12 17:36 | PN ---
Progress Note - Progress Note Date of Service: 07/12/18 SOAP: Subjective: Pt seen and examined earlier today and then at mid day. Imporved abdo pain. No nausea. Some appetite. Pain moved to RUQ Objective: af vss a and o x3, nad abdo: soft/ ND/ tender at epigastrum w/o rebound CT reviewed EGD performed Assessment: resolving abdo pain. etiology unclear. No nargina ulcer; possible GG fistula have not r/o internal hernia/ Plan: wathcfil waiting one more night. PPI clear liquid diet
[2018-07-12] MEDS ORDERED: Lactated Ringers 1000 ML Bag* 1,000 ML IV SCH (18:30)
--- NOTE | 2018-07-12 20:44 | CONS ---
CC: Dr. Enrique Weiss GASTROENTEROLOGY CONSULT REPORT: DATE OF CONSULT: 07/12/18 REQUESTING PROVIDER: Dr. Enrique Weiss. REASON FOR CONSULT: Abdominal pain. HISTORY OF PRESENT ILLNESS: Ms. Mancini is a 47-year-old woman with history of obesity, status post Adrian-en-Y in September 2017, complicated by return to OR for a revision of gastrojejunostomy, who is admitted with acute-onset abdominal pain. Ms. Mancini was in usual state of health until Sunday when she started developing an acute epigastric and left upper quadrant discomfort. This pain improved until the following day when it returned after eating boiled egg and tea. She developed acute-onset severe pain under the ribs bilaterally. Not associated with any nausea and vomiting. The pain was severe enough that the patient presented to the ER for evaluation. She was admitted for observation. Of note, the patient was given Dilaudid with significant cutaneous response. She was then given morphine and had a lesser cutaneous response. The patient had previously received fentanyl for her pre-bariatric surgery EGD without issue. On interview, Ms. Mancini states that her abdominal pain is much improved today. She denies any symptoms other than some loose stool. She has not seen any melena or hematochezia. She has had weight loss after the bariatric surgery. She denies any dysphagia or reflux. No fevers or chills. PAST MEDICAL HISTORY: Includes obesity, hypothyroidism, asthma, osteoarthritis , and sleep apnea. PAST SURGICAL HISTORY: Cholecystectomy, tubal ligation, vein stripping, and Adrian- en-Y gastric bypass. MEDICATIONS: 1. Multivitamin. 2. Synthroid. 3. Zofran as needed. 4. Ibuprofen occasionally during her menstrual cycle, although she tries to minimize use of this medication. ALLERGIES: Allergic to PENICILLIN, ERYTHROMYCIN, and possible Dilaudid and morphine reactions. FAMILY HISTORY: No known GI or liver disease in family. SOCIAL HISTORY: The patient works at [employer]. She does not drink alcohol or use drugs. She is a nonsmoker. REVIEW OF SYSTEMS: A 14-point review of systems negative except as above. PHYSICAL EXAM: Vital Signs: Reviewed. The patient is afebrile. Heart rate in the 50s to 60s , blood pressure 102/60. General: Well-appearing, no acute distress. HEENT: Mucous membranes are moist. Lungs: Clear to auscultation. Cardiovascular: Regular rate and rhythm. Abdomen: Soft, nondistended. Mild tenderness in the upper abdomen. No rebound tenderness or guarding. DIAGNOSTIC STUDIES/LAB DATA: Labs reviewed: White count normal at 5.4; hematocrit was 35 on admission, now 31; platelet count normal. Comprehensive panel notable for a normal creatinine and liver function. CRP not elevated. Lipase normal. Imaging: CT abdomen and pelvis performed on 07/11/18 did not demonstrate any leakage outside of the bowel lumen. There were no acute findings noted. IMPRESSION AND PLAN: Ms. Mancini is a 47-year-old woman with a history of Adrian-en -Y gastric bypass in September 2017, who is admitted with severe upper abdominal pain x2 days. The patient is hemodynamically stable. Labs were unremarkable. CT abdomen/ pelvis without acute findings.Abdominal pain seems to be improving today. I was asked by Dr Weiss to perform an EGD to rule-out anastomotic ulcer. - Please keep n.p.o. - PPI daily - We will plan for upper endoscopy today. Thank you very much for this consult. [id number]/[facility] #: [id number] [facility]ENTERCar
--- NOTE | 2018-07-12 21:37 | PRO ---
CC: Dr. Enrique Weiss PROCEDURE REPORT: DATE OF PROCEDURE: 07/12/18 REFERRING PROVIDER: Dr. Enrique Weiss. PROCEDURE: Upper esophagogastroscopy. INDICATION: Patient with a history of Adrian-en-Y gastric bypass in September 2017. Now with acute onset upper abdominal pain. Asked by Dr. Weiss to evaluate for abnormalities including marginal ulceration. MEDICATIONS GIVEN: 1. Midazolam 10 mg IV. 2. Fentanyl 75 mcg IV. DESCRIPTION OF PROCEDURE: Full disclosure of risks was reviewed with the patient as detailed on the consent form. The patient was placed in the left lateral decubitus position and monitored with continuous pulse oximetry, capnography, interval blood pressure monitoring, and direct observation. A bite block was placed between the patient's teeth. An adult gastroscope was then advanced into the esophagus, into the stomach, and into the small bowel. Findings and interventions are described below. FINDINGS: Esophagus was a normal tubular structure. The GE junction and Z- line were regular and occurred at 38 cm. Scope was then advanced into the gastric remnant which measured 3 to 4 cm in length. The gastric mucosa appeared normal. There was no evidence of marginal or anastomotic ulceration. The blind pouch was evaluated and was normal in appearance. The Adrian-limb was then intubated x15 cm. The mucosa in the small intestine appeared normal. Scope was then withdrawn back into the gastric remnant. At the area of anastomosis, there did appear to be a retained suture. There was also what looked like a possible gastrogastric fistula. This fistula appeared small. Dr. Weiss was called into the case to review these findings. The scope was then withdrawn from the patient. The patient tolerated the procedure well and was recovered in the GI recovery area. IMPRESSION: 1. Adrian-en-Y gastric bypass anatomy. 2. Single retained suture material. 3. 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 4. No ulceration or other acute findings noted. FOLLOWUP: 1. Discussed case with Dr. Weiss. Plan for clinical monitoring over next 24 hours. Thank you very much for this consult. GI remains available if there are any further questions. [id number]/[facility] #: [id number] MTDD
[2018-07-13 07:59] VITALS: BP 97/53
--- NOTE | 2018-07-13 10:08 | DS ---
CC: Dr. Abhi Marcos; [facility] * DISCHARGE SUMMARY: DATE OF ADMISSION: DATE OF DISCHARGE: 07/13/18 HOSPITAL COURSE: Ms. Mancini is a 47-year-old female just under a year status post Adrian-en-Y gastric bypass procedure, who was admitted 2 days ago with acute onset of left upper quadrant pain. Please refer to H and P for full details. The patient was admitted, maintained on n.p.o. status, underwent a CT scan as well as labs that were all within normal limits. The working diagnosis was a concern for an internal hernia. Consideration for taking the patient to the OR was established and I discussed this with the patient. By the following morning , the patient showed some improvement and I recommended EGD prior to any surgical intervention. This EGD was performed. Please see procedure report. It showed no evidence of marginal ulceration, an appropriately sized gastric pouch, and anastomosis. There was a concern of possibility of a gastrogastric fistula entertained on this scope. I did look at these images. In the recovery area, I discussed the patient's care. We made the decision to wait until the following day to see if she should continue to show improvement. The patient was seen on day of discharge, again with the possibility of taking to the OR for a diagnostic laparoscopy for evaluation. She had been started on liquids after the EGD and maintained on n.p.o. status since midnight. Today, she states that she is feeling better, had a bowel movement, and still has some discharge that has moved around and now is mostly in the right upper quadrant. PHYSICAL EXAM: Physical exam was performed on day of discharge. The patient was afebrile, vital signs were stable. Alert and oriented x3, in no apparent distress. Sclerae anicteric. Lungs: Clear to auscultation. Abdomen: Soft, nondistended. Minimal tenderness on deep palpation at the left upper quadrant. No rebound, no guarding, no CVA tenderness. Extremities within normal limits. IMPRESSION: Nine months status post Adrian-en-Y gastric bypass with over 100- pound weight loss with a BMI of 25, who presented with acute onset of pain that has since improved. Differential diagnosis does include internal hernia that may have resolved and reduced spontaneously and this is still a strong concern at this point; however, I think it is safe for the patient to go home and we would plan to see her on Sunday next week in my office. If she has the persistence of this pain, we can take her for a diagnostic laparoscopy some time next week. I do not feel there were any area of concern for bowel ischemia and for this reason, we will discharge her. I am concerned about some element of reflux and for this reason, we will continue her on proton pump inhibitors. Regarding the potential for her gastrogastric fistula, we will wait for this acute phase to pass. Certainly, the acute symptoms would not be secondary to a gastrogastric fistula if it was chronic. However, I would like to work this up with a barium swallow study in the future. I discussed all of this with the patient and her including with pictures and we will see her in the office on Sunday, see how she is doing. As long as she continues to improve, watchful waiting will be the plan and workup for the potential fistula will be performed. The patient is aware and she will only get a prescription for omeprazole 40 mg daily at this time. She does not require any pain medication and followup visit will be made. [id number]/[facility] #: [id number] MTDCar
== END 2018-07-13 10:50 | disposition home or self-care (01) ==
LOC: ED 12:18 → SSU 16:48
PROVIDERS: ADMIT Surgery; ATTEND Surgery
DX: R10.12 Left upper quadrant pain (principal); Z98.84 Bariatric surgery status; R11.0 Nausea; Z88.0 Allergy status to penicillin
CPT/HCPCS: 36415; 74177; 80053; 83605; 83690; 84702; 85025; 86140; 90471; 90686; 96374; 96375; 99156; 99157; 99282; G0008; G0378; J1170; J1885; J2250; J2270; J2405; J3010

== ENCOUNTER 2019-07-04 06:18 | Inpatient (IN) | payer BC ==
--- NOTE | 2019-06-26 09:08 | HP ---
HISTORY AND PHYSICAL: DATE OF ADMISSION/SURGERY: 07/04/19 DATE OF OFFICE VISIT: 06/23/19 SURGEON: Luisa Morley MD * (DICTATED BY ROSANNA CROUCH) PROCEDURE: Left total hip arthroplasty. CHIEF COMPLAINT: Left hip pain. HISTORY OF PRESENT ILLNESS: Ms. Mancini is a 48-year-old female with severe end- stage osteoarthritis of the left hip. She has failed conservative treatment and elected to proceed with a left total hip arthroplasty. PAST MEDICAL HISTORY: Hypothyroidism and asthma. PAST SURGICAL HISTORY: Tubal ligation, cholecystectomy, gastric bypass. CURRENT MEDICATIONS: 1. Hair, Skin and Nails. 2. Levothyroxine 125 mcg a day. 3. Biotin. 4. control. ALLERGIES: PENICILLIN, ERYTHROMYCIN, and MORPHINE causing a rash. FAMILY HISTORY: Breast cancer and diabetes. SOCIAL HISTORY: She is a 48-year-old female. She lives with her . She does not smoke or use drugs. She uses occasional alcohol. REVIEW OF SYSTEMS: A complete 14-point review of systems was reviewed with the patient. It was positive for asthma. She denies a history of DVT, PE, hepatitis, HIV, or anesthesia problems. PHYSICAL EXAMINATION GENERAL: She is well developed, well nourished, in no acute distress. VITAL SIGNS: She stands 63 inches tall, weighs 127 pounds. Her blood pressure is 90/60, her heart rate is 58. HEENT: Normocephalic, atraumatic. NECK: Supple. No palpable lymph nodes. PULMONARY: The lungs are clear to auscultation bilaterally. CARDIO: Regular rate and rhythm. Strong S1, S2. ABDOMEN: Soft, nontender, nondistended. NEUROLOGICAL: She is alert and oriented x3. MUSCULOSKELETAL: Left lower extremity: The skin is intact. There are no open wounds or abrasions. She walks with an antalgic-type gait favoring her left hip. She has 0 degrees of internal rotation, 10 degrees of external rotation, and 90 degrees of flexion, all reproducing groin pain. She is able to dorsiflex and plantar flex. She has a 2+ dorsalis pedis pulse and intact sensation. ASSESSMENT AND PLAN: Ms. Mancini is a 48-year-old female with severe end-stage osteoarthritis of the left hip. She has failed conservative treatment and elected to proceed with a left total hip arthroplasty. The surgery is scheduled for 07/04/[address] Morley. discussed the risks and benefits of the surgery at today's visit and all of her questions were answered. She will follow up with Dr. Morley 2 weeks after the surgery. ROSANNA CROUCH [id number]/[facility] #: [id number] BILL
[~2019-07-04 06:18] MED LIST: Buffered Lidocaine 1% SYRIN* 1 ML/SYRINGE INTRADERM ONE; Lactated Ringers 1000 ML Bag* 1,000 ML IV SCH; Tranexamic Acid 1,000 MG in NS 0.9% 50 ML* (outpatient use) IV SCH
--- OUTSIDE RECORDS SUMMARY | 2019-07-04 06:21 | XMS REPORT | Continuity of Care Document ---
:1970 External Reference #:[id number] Author Name Luisa Morley M.D. 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 Onset: 03/19/2019 the pelvic region and thigh Social History Type Date Description Comments Sex Unknown Tobacco Use Start: Unknown Never Smoked Cigarettes Smoking Status Reviewed: 06/23/19 Never Smoked Cigarettes ETOH Use Occasionally consumes alcohol Tobacco Use Start: Unknown Patient has never smoked Recreational Drug Use Denies Drug Use Allergies, Adverse Reactions, Alerts Active Allergies Reaction Severity Comments Date Penicillin 08/01/2017 Erythromycin 08/01/2017 Morphine hives 03/19/2019 Medications Active Medications SIG Qnty Indications Ordering Provider Date Hair Skin And Nails qd Unknown Levothyroxine Sodium 1 by mouth Unknown 125mcg every day Tablets Biotin daily Unknown Camrese 1 tab by mouth Abhi Marcos MD 0.15-0.03&0.01mg once daily Tablets Medications Administered in Office Medication SIG Qnty Indications Ordering Provider Date No Injection Luisa Morley M.D. 03/26/2019 Injection Depomedrol 40MG Luisa Morley M.D. 03/26/2019 Injection Depomedrol 40MG Luisa Morley M.D. 03/19/2019 Injection Immunizations Description No Information Available Vital Signs Date Vital Result Comment 06/23/2019 10:31am Height 63 inches 5'3" Weight 127.00 lb Heart Rate 58 /min BP Systolic Sitting 90 mmHg BP Diastolic Sitting 60 mmHg Respiratory Rate 14 /min Pain Level 3 BMI (Body Mass Index) 22.5 kg/m2 04/25/2019 3:38pm Height 63 inches 5'3" Weight 124.00 lb Heart Rate 60 /min BP Systolic Sitting 132 mmHg BP Diastolic Sitting 82 mmHg Respiratory Rate 14 /min Pain Level 2 BMI (Body Mass Index) 22.0 kg/m2 Results Test Acquired Date Facility Test Result H/L Range Note Xray 03/26/2019 [facility] Inj/Aspir Major JT Or Bursa <pending> W/ US Xray 03/19/2019 [facility] Inj/Aspir Major JT Or Bursa <pending> W/ US Procedures Date Code Description Status 03/26/2019 [id number] Inj/Aspir Major JT Or Bursa W/ US Completed 03/19/201947614 Inj/Aspir Major JT Or Bursa W/ US Completed 08/13/2017 [id number] Colonoscopy Completed Medical Devices Description No Information Available Encounters Type Date Location Provider Dx Diagnosis Office Visit 04/25/2019 [facility] Luisa Morley, M25.552 Pain in left hip 3:15p at [facility].D. M16.12 Unilateral primary osteoarthritis, left hip Office Visit 03/19/2019 10:00a [facility] M25.551 [facility] in left hip M16.11 Unilateral primary osteoarthritis, right hip M16.12 Unilateral primary osteoarthritis, left hip Z68.22 Body mass index (BMI) 22.0-22.9, adult E66.01 Morbid (severe) obesity due to excess calories Assessments Date Code Description Provider 06/23/2019 M25.552 Pain in left hip Luisa Morley M.D. 06/23/2019 M16.12 Unilateral primary osteoarthritis, left hip Luisa Morley M.D. 04/25/2019 M25.552 Pain in left hip Luisa Morley M.D. 04/25/2019 M16.12 Unilateral primary osteoarthritis, left hip Luisa Morley M.D. 03/26/2019 M25.551 Pain in right hip Luisa Morley M.D. 03/26/2019 M16.11 Unilateral primary osteoarthritis, right hip Luisa Morley M.D. 03/19/2019 M25.551 Pain in right hip Luisa Morley M.D. 03/19/2019 M25.552 Pain in left hip Luisa Morley M.D. 03/19/2019 M16.11 Unilateral primary osteoarthritis, right hip Luisa Morley M.D. 03/19/2019 M16.12 Unilateral primary osteoarthritis, left hip Luisa Morley M.D. 03/19/2019 Z68.22 Body mass index (BMI) 22.0-22.9, adult Luisa Morley M.D. 03/19/2019 E66.01 Morbid (severe) obesity due to excess calories Luisa Morley M.D. Plan of Treatment Future Appointment(s):07/14/2019 9:15 am - Luisa Morley M.D. at [facility] at [address]/04/2019 12:30 pm - [place] at [facility] at [address]207/04/2019 12:30 pm - Luisa Morley M.D. at [facility] at [place]/23/2019 - Luisa Morley M.D.M25.552 Pain in left hipFollow up:Follow up: 2 weeks after [id number] Unilateral primary osteoarthritis, left hip Functional Status Description No Information Available Mental Status Description No Information Available Referrals Description No Information Available
--- OUTSIDE RECORDS SUMMARY | 2019-07-04 06:21 | XMS REPORT | Continuity of Care Document ---
:1970 External Reference #:[id number] Author Name Nessa Wood M.D. 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 [...] Date Facility Test Result H/L Range Note Laboratory test 06/23/2019 [facility] Folic Acid > 20.00 > 3.99 finding [address] [facility] (Folate) ng/[place] [address] [phone] Vitamin B12 413 pg/mL Normal 180-914 1 Vitamin D Total 25(Oh) 39.8 ng/mL Normal 20-50 2 Iron & Iron Binding 06/23/2019 [facility] Iron 95 g/dL Normal 50-212 [address] [place] [address] [phone] Unsaturated Iron Binding < 558 g/dL Total Iron Binding Capacity 573 g/dL High 250-450 Transferrin 409 mg/dL High 203-362 % Iron Saturation 17 % Normal 15-55 Pthi 06/23/2019 [facility] PTH Intact 76.9 pg/mL Normal 12-88 [place] [address] [phone] Calcium (PTH Intact) 8.9 mg/dL Normal 8.6-10.3 Laboratory 06/23/2019 [facility] Ferritin 9.1 ng/mL Low 11- 307 [place] [address] [phone] Inr/Protime 06/23/2019 [facility] Inr 0.97 Normal 0.82-1.09 3 [place] [address] [phone] Laboratory 06/23/2019 [facility] Partial 25.4 Low 26.0-38.[address] [place] [address] PTT [phone] Comp Metabolic 06/23/2019 [facility] Sodium 137 mmol/L Normal 135-[address] [place] [address] [phone] Potassium 4.8 mmol/L Normal 3.5-5.0 Chloride 104 mmol/L Normal 101-111 Co2 Carbon Dioxide 27 mmol/L Normal 22-32 Anion Gap 6 mmol/L Normal 2-11 Glucose 84 mg/dL Normal 70-100 Blood Urea Nitrogen 17 mg/dL Normal 6-24 Creatinine 0.65 mg/dL Normal 0.51-0.95 BUN/Creatinine Ratio 26.2 High 8-20 Calcium 9.4 mg/dL Normal 8.6-10.3 Total Protein 7.4 g/dL Normal 6.4-8.9 Albumin 4.1 g/dL Normal 3.2-5.2 Globulin 3.3 g/dL Normal 2-4 Albumin/Globulin Ratio 1.2 Normal 1-3 Total Bilirubin 0.50 mg/dL Normal 0.2-1.0 Alkaline Phosphatase 67 U/L Normal 34-104 Alt 18 U/L Normal 7-52 Ast 25 U/L Normal 13-39 Egfr Non- 97.3 >60 Egfr 117.7 >60 4 Urinalysis Profile 06/23/2019 [facility] Urine Color Yellow [address] [place] [address] [phone] Urine Appearance Cloudy Urine Specific [place] 1.020 Normal 1.010-1.030 Urine pH 5.0 Normal 5-9 Urine Urobilinogen Negative Negative Urine Ketones Trace Abnormal Negative Urine Protein Negative Negative Urine Leukocytes 1+ Abnormal Negative Urine Blood Negative Negative * * Abnormal Negative 5 Urine Nitrite Negative Negative Urine Bilirubin Negative Negative Urine Glucose Negative Negative Urine White Blood Cell Trace(0-5/hpf) Absent Urine Red Blood Cell 1+(3-5/hpf) Abnormal Absent Urine Bacteria 1+ Abnormal Absent Urine Squamous Epithelial Cell Present Abnormal Absent CBC Auto 06/23/2019 [facility] White Blood 5.4 10^3/uL Normal 3.5-10.[address] [place] [address] [phone] Red Blood Count 3.69 10^6/uL Low 3.70-4.87 Hemoglobin 10.6 g/dL Low 12.0-16.0 Hematocrit 32 % Low 35-47 Mean Corpuscular Volume 86 fL Normal 80-97 Mean Corpuscular Hemoglobin 29 pg Normal 27-31 Mean Corpuscular HGB Conc 34 g/dL Normal 31-36 Red Cell Distribution Width 17 % High 10-15 Platelet Count 233 10^3/uL Normal 150-450 Mean Platelet Volume 8.0 fL Normal 7.4-10.4 Abs Neutrophils 2.7 10^3/uL Normal 1.5-7.7 Abs Lymphocytes 2.2 10^3/uL Normal 1.0-4.8 Abs Monocytes 0.3 10^3/uL Normal 0-0.8 Abs Eosinophils 0.1 10^3/uL Normal 0-0.6 Abs Basophils 0.0 10^3/uL Normal 0-0.2 Abs Nucleated RBC 0.0 10^3/uL Granulocyte % 50.1 % Lymphocyte % 41.2 % Monocyte % 6.2 % Eosinophil % 2.0 % Basophil % 0.5 % Nucleated Red Blood Cells % 0.1 Type & Screen 06/23/2019 [facility] Patient Blood Type A Negative [address] [place] [address] [phone] Antibody Screen NEGATIVE Urine Culture And 06/23/2019 [facility] Urine Culture SEE RESULT [address] [place] [address] [phone] Xray 03/26/2019 [facility] Inj/Aspir <pending> Major JT Or Bursa W/ US Xray 03/19/2019 [facility] Inj/Aspir <pending> Major JT Or Bursa W/ US 1 Normal Range 180 to 914 Indeterminate Range 145 to 180 Deficient Range <145 2 Total 25-Hydroxyvitamin D2 and D3 (25-OH-VitD) <10 ng/mL (severe deficiency) 10-19 ng/mL (mild to moderate deficiency) 20-50 ng/mL (optimum levels) 51-80 ng/mL (increased risk of hypercalciuria) >80 ng/mL (toxicity possible) 3 Standard intensity warfarin therapeutic range: 2.0-3.0 High intensity warfarin therapeutic range: 2.5-3.5 4 Because ethnic data is not always readily [...] 15-29 5 Kidney failure <15 (or dialysis) 5 *Ascorbic acid is present which may interfere with detection of blood. 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 END OF REPORT DEPARTMENT OF PATHOLOGY, [address] [place] [address] Lam Fowler M.D. Director [facility] # [id number] Procedures Date Code Description Status 03/26/2019 Inj/Aspir Major JT Or Bursa W/ US Completed 03/19/2019 Inj/Aspir Major JT Or Bursa W/ US Completed 08/13/2017 [id number] Colonoscopy Completed Medical Devices Description No Information Available Encounters Type Date Location Provider Dx Diagnosis Office Visit 04/25/2019 Domenico Morley, M25.552 Pain in left hip 3:15p at [facility] M16.12 Unilateral primary osteoarthritis, left hip Office Visit 03/19/2019 10:00a Domenico Morley, M25.551 Pain in right at [place] MJenniferDJennifer hip M25.552 Pain in left hip M16.11 [...] 9:15 am - Luisa Morley M.D. at [facility] at Eewcop0907/04/2019 12:30 pm - ADRIANA Meadows at [facility] at Eyozlt8807/04/2019 12:30 pm - Luisa Morley M.D. at [facility] at Ohtcqe4206/23/2019 - Luisa Morley M.D.M25.552 Pain in left hipFollow up:Follow up: 2 weeks after ckexrygX55.12 Unilateral primary osteoarthritis, left hip Functional Status Description No Information Available Mental Status Description No Information Available Referrals Description No Information Available
[2019-07-04] MEDS ORDERED: Buffered Lidocaine 1% SYRIN* 1 ML/SYRINGE INTRADERM ONE (06:49)
[2019-07-04] MEDS ORDERED: Clindamycin 900 MG/D5W BAG(*) 900 MG/50 ML BAG IVPB ONE (06:49)
[2019-07-04] MEDS ORDERED: Naloxone* 0.4 MG/ML 1 ML VIAL IV PRN (07:46)
[2019-07-04] MEDS ORDERED: fentaNYL* 50 MCG/ML 2 ML VIAL (100 MCG VIAL) IV PRN (07:46)
[2019-07-04] MEDS ORDERED: Ondansetron INJ* 2 MG/ML VIAL IV PRN (07:46)
[2019-07-04] MEDS ORDERED: Propofol* 10 MG/ML 20 ML BTL ONE (08:02)
[2019-07-04] MEDS ORDERED: fentaNYL* 50 MCG/ML 2 ML VIAL (100 MCG VIAL) ONE (08:02)
[2019-07-04] MEDS ORDERED: Midazolam* 1 MG/ML 5 ML VIAL (5 MG) ONE (08:02)
[2019-07-04] MEDS ORDERED: Magnesium Hydroxide LIQ* 30 ML UDC PO PRN (10:41)
[2019-07-04] MEDS ORDERED: diPHENhydraMINE PO* 25 MG PO PRN (10:41)
[2019-07-04] MEDS ORDERED: traZODone TAB* 50 MG TAB PO PRN (10:41)
[2019-07-04] MEDS ORDERED: oxyCODONE/Acetamin 5/325 MG* TAB PO PRN (10:41)
[2019-07-04] MEDS ORDERED: Ondansetron ODT TAB* 4 MG PO PRN (10:41)
[2019-07-04] MEDS ORDERED: Polyethylene Glycol 3350* 17 GM PACKET PO PRN (10:41)
[2019-07-04] MEDS ORDERED: Cyclobenzaprine TAB* 10 MG PO PRN (10:41)
[2019-07-04] MEDS ORDERED: diPHENhydraMINE IV* 50 MG/ML 1 ml VIAL (BENADRYL) IV PRN (10:41)
[2019-07-04] MEDS ORDERED: Albuterol HFA INHALER* 8 gm MDI INH PRN (10:47)
[2019-07-04] MEDS: Lactated Ringers 1000 ML Bag* 1,000 ML IV SCH ×2 (12:04→23:34)
[2019-07-04] MEDS ORDERED: traMADol TAB* 50 MG ONE (12:36)
[2019-07-04] MEDS: traMADol TAB* 50 MG PO PRN (12:38)
[2019-07-04] MEDS: Ondansetron INJ* 2 MG/ML VIAL IV PRN (13:27)
[2019-07-04] MEDS ORDERED: oxyCODONE TAB* 5 MG TAB ONE (13:31)
[2019-07-04] MEDS: oxyCODONE TAB* 5 MG TAB PO PRN ×3 (13:35→22:12)
[2019-07-04] MEDS: Acetaminophen TAB* 325 MG PO SCH ×2 (14:25→22:12)
--- NOTE | 2019-07-04 14:48 | OP ---
Operative Report - Blank - Operative Report Date of Operation: 07/04/19 Note: BRENDAN HARTLEY 1970 Date Of Surgery: 07/04/19 Luisa Morley MD Special Education Resource Room Teacher: Mckenzie MARTE did help throughout the procedure with preparation of the hip, wound retraction, manipulation of the hip, and wound closure. Anesthesiologist: Dr. Houser Anesthesia Type: Spinal Preoperative Diagnosis: Left severe degenerative osteoarthritis of the hip Postoperative Diagnosis: As above Procedure Performed: Left Total Hip Arthroplasty Complications: None Specimen: Femoral head and acetabular reamings sent to pathology. Hardware used: This is uncemented Francine total hip arthroplasty hardware for the femur a size 2 accolade II with 127 neck angle femoral component, for the acetabulum a size 46C trident II tritanium cluster hole shell with one 15mm screw, for the insert a size 32C trident X3 polyethylene insert, and for the femoral head a size 32 - 4 ceramic biolox V40 femoral head. Brief history/Indication: BRENDAN HARTLEY was known in clinic and had a history of severe left hip pain. She failed conservative treatment with anti- inflammatories, pain pills, intra-articular injections and physical therapy. She elected to undergo left total hip arthroplasty due to continued pain and decreased quality of life. Radiographs showed severe end stage osteoarthritis of the hip with bone on bone contact. Informed consent was obtained from the patient. She understood the risks of surgery included but were not limited to: bleeding, infection, damage to nearby structures, intraoperative fracture, nerve palsy, failure of the hardware, early loosening, stiffness or loss of motion, dislocation, leg length discrepancy, anesthesia complications, stroke, heart attack, blood clot and . She wished to proceed. Intra-Operative findings: Intraoperatively the patient was noted to have severe loss of cartilage of the acetabulum and femoral head. Description of the Procedure: BRENDAN HARTLEY was identified in the preanesthesia unit. Her left hip was marked as the correct operative side. Informed consent was signed and placed in the chart. The patient was taken to the operating room and placed under anesthesia without complication. A shabazz catheter was placed. The patient was placed on the peg board with all bony prominences well padded. The left lower extremity was prepped and draped in the usual sterile fashion. Preoperative time -out was made to correctly identify the patient, side and site. Appropriate intraoperative antibiotics were given within one hour of incision. A standard posterior incision was made and carried sharply down to the lateral fascia. A new 10 blade was used to make an incision in the fascia in line with the skin incision. A charnley retractor was placed. The piriformis and conjoined tendons were identified and elevated off the posterolateral femur using electrocautery. These were tagged with number 5 Ethibond. Next electrocautery was used to make a posterolateral capsular flap and this was tagged with number 5 Ethibonds. The hip was carefully dislocated. Lesser trochanter to the center of the femoral head was measured at 57 mm. The oscillating saw was used to make the femoral neck cut. The femoral head was carefully removed. The femur was retracted anteriorly and the acetabular retractors were placed. Long-handled knife was used to sharply remove any remaining labrum from the acetabular rim. The acetabulum was sequentially reamed up to a size 46. A bleeding subchondral bone bed was obtained. A trial liner was placed and had excellent fit and stability. A 46C cup with a single screw was placed and had excellent stability with appropriate anteversion and abduction angle. A size 32C liner was impacted into the acetabular shell. The liner was checked for stability and was stable. Next attention was turned to preparation of the femoral canal. A canal finder was used to enter the proximal femur. The femoral canal was sequentially broached up to a size 2 femoral broach trial. A trial neck and 32 - 4 trial femoral head was chosen. Lesser trochanter to center of the femoral head measurement was satisfactory. The hip was reduced and taken through a range of motion. The hip was stable in all positions with good soft tissue tension and appropriate leg lengths. The hip was dislocated and all trials were removed. The final implant chosen was a accolade size 2. This stem was impacted into the femoral canal without difficulty. The stem was stable with appropriate anteversion. The femoral head chosen was a 32 - 4 ceramic head. The head was impacted onto the femoral neck without difficulty. The final lesser trochanter to center of the femoral head measurement was satisfactory. The hip was reduced and taken through a range of motion. The hip was stable in all positions with good soft tissue tension and appropriate leg lengths. The hip was copiously irrigated with sterile saline. The previously tagged capsule and tendons were repaired to the posterolateral femur through two trochanteric drill holes. The lateral fascia layer was closed using number 1 vicryls. The rest of the incision was closed in a layered fashion using 0 and 2-0 vicryls. The skin was closed using 3-0 monocryl suture and Dermabond. Sterile adaptic, 4x4s and paper tape was used to cover the incision. The patients anesthesia was reversed without difficulty. She was taken to the PACU in stable condition. Intended weight-bearing will be as tolerated with posterior hip precautions.
[2019-07-04] MEDS: Clindamycin 600 MG/D5W BAG(*) 600 MG/50 ML BAG IV SCH (16:29)
[2019-07-04] MEDS: Docusate CAP* 100 MG PO SCH (20:43)
[2019-07-04] MEDS: Magnesium Hydroxide LIQ* 30 ML UDC PO SCH (20:43)
[2019-07-05] MEDS: Clindamycin 600 MG/D5W BAG(*) 600 MG/50 ML BAG IV SCH ×2 (00:18→08:39)
[2019-07-05] MEDS: traMADol TAB* 50 MG PO PRN (03:12)
[2019-07-05] MEDS: oxyCODONE/Acetamin 5/325 MG* TAB PO PRN ×3 (04:05→20:20)
[2019-07-05] MEDS: Levothyroxine TAB* 125 MCG TAB PO SCH (05:58)
[2019-07-05] MEDS: Acetaminophen TAB* 325 MG PO SCH ×3 (06:06→21:46)
[2019-07-05 06:15] LABS: Hematocrit 26 % (35-47); Hemoglobin 8.9 g/dL (12.0-16.0); Mean Platelet Volume 7.4 fL (7.4-10.4); Platelet Count 196 10^3/uL (150-450)
[2019-07-05 06:28] LABS: BUN/Creatinine Ratio 16.4 (8-20); Calcium 8.3 mg/dL (8.6-10.3); EGFR African American 113.7 (>60); EGFR Non-African American 93.9 (>60); Potassium 4.4 mmol/L (3.5-5.0)
[2019-07-05] MEDS: oxyCODONE TAB* 5 MG TAB PO PRN ×3 (06:59→16:43)
[2019-07-05] MEDS: Ondansetron INJ* 2 MG/ML VIAL IV PRN (08:38)
[2019-07-05] MEDS: BIRTH CONTROL PO SCH (08:41)
[2019-07-05] MEDS: Magnesium Hydroxide LIQ* 30 ML UDC PO SCH ×2 (08:41→20:20)
[2019-07-05] MEDS: Apixaban* 2.5 MG TAB PO SCH ×2 (08:41→20:20)
[2019-07-05] MEDS: Docusate CAP* 100 MG PO SCH ×2 (08:41→20:20)
[2019-07-05] MEDS ORDERED: Pneumococcal *Vac Polyvalent 0.5 ML VIAL IM ONE (09:00)
[2019-07-05] MEDS: Lactated Ringers 1000 ML Bag* 1,000 ML IV SCH (11:03)
--- NOTE | 2019-07-05 12:33 | PN ---
Progress Note - Progress Note Date of Service: 07/05/19 SOAP: Subjective: Pt seen and examined sitting in chair. Pain tolerable. No complaint otherwise. Denies CP, SOB, F/C. Vital Signs: Temp Pulse Resp BP Pulse Ox 99.2 F 75 16 112/58 100 07/05/19 11:43 07/05/19 11:43 07/05/19 12:03 07/05/19 11:43 07/05/19 11:43 Laboratory Last Values Hgb 8.9 g/dL (12.0-16.0) L 07/05/19 05:48 Hct 26 % (35-47) L 07/05/19 05:48 Plt Count 196 10^3/uL (150-450) 07/05/19 05:48 MPV 7.4 fL (7.4-10.4) 07/05/19 05:48 Sodium 135 mmol/L (135-145) 07/05/19 05:48 Potassium 4.4 mmol/L (3.5-5.0) 07/05/19 05:48 Chloride 105 mmol/L (101-111) 07/05/19 05:48 Carbon Dioxide 27 mmol/L (22-32) 07/05/19 05:48 Anion Gap 3 mmol/L (2-11) 07/05/19 05:48 BUN 11 mg/dL (6-24) 07/05/19 05:48 Creatinine 0.67 mg/dL (0.51-0.95) 07/05/19 05:48 Est GFR ( Amer) 113.7 (>60) 07/05/19 05:48 Est GFR (Non-Af Amer) 93.9 (>60) 07/05/19 05:48 BUN/Creatinine Ratio 16.4 (8-20) 07/05/19 05:48 Glucose 109 mg/dL (70-100) H 07/05/19 05:48 Calcium 8.3 mg/dL (8.6-10.3) L 07/05/19 05:48 Objective: A&O x3, NAD Dressing C/D/I, Calves soft and nontender, No edema, NVI distally Assessment: 48 yo female s/p Left LANCE POD #1 Plan: OOB, PT/OT WBAT Pain control DVT prophylaxis - Eliquis 2.5mg bid Likely D/C home tomorrow 07/06
[2019-07-06] MEDS: traMADol TAB* 50 MG PO PRN (00:06)
[2019-07-06] MEDS: oxyCODONE/Acetamin 5/325 MG* TAB PO PRN ×2 (02:08→08:29)
[2019-07-06] MEDS: Acetaminophen TAB* 325 MG PO SCH (05:31)
[2019-07-06] MEDS: Levothyroxine TAB* 125 MCG TAB PO SCH (05:55)
[2019-07-06] MEDS: oxyCODONE TAB* 5 MG TAB PO PRN ×2 (06:00→11:16)
[2019-07-06] MEDS: BIRTH CONTROL PO SCH (07:51)
[2019-07-06] MEDS: Docusate CAP* 100 MG PO SCH (08:28)
[2019-07-06] MEDS: Apixaban* 2.5 MG TAB PO SCH (08:29)
[2019-07-06] MEDS: Magnesium Hydroxide LIQ* 30 ML UDC PO SCH (08:31)
[2019-07-06 08:49] LABS: Hematocrit 26 % (35-47); Hemoglobin 8.7 g/dL (12.0-16.0); Mean Platelet Volume 6.9 fL (7.4-10.4); Platelet Count 225 10^3/uL (150-450)
--- NOTE | 2019-07-06 10:13 | PN ---
Progress Note - Progress Note Date of Service: 07/06/19 SOAP: Subjective: Pt seen and examined at bedside. States pain well controlled. No complaint otherwise. Denies CP, SOB, F/C. Vital Signs: Temp Pulse Resp BP Pulse Ox 98.7 F 71 18 104/58 99 07/06/19 07:33 07/06/19 07:33 07/06/19 08:31 07/06/19 07:56 07/06/19 07:33 Laboratory Last Values Hgb 8.7 g/dL (12.0-16.0) L 07/06/19 08:45 Hct 26 % (35-47) L 07/06/19 08:45 Plt Count 225 10^3/uL (150-450) 07/06/19 08:45 MPV 6.9 fL (7.4-10.4) L 07/06/19 08:45 Sodium 135 mmol/L (135-145) 07/05/19 05:48 Potassium 4.4 mmol/L (3.5-5.0) 07/05/19 05:48 Chloride 105 mmol/L (101-111) 07/05/19 05:48 Carbon Dioxide 27 mmol/L (22-32) 07/05/19 05:48 Anion Gap 3 mmol/L (2-11) 07/05/19 05:48 BUN 11 mg/dL (6-24) 07/05/19 05:48 Creatinine 0.67 mg/dL (0.51-0.95) 07/05/19 05:48 Est GFR ( Amer) 113.7 (>60) 07/05/19 05:48 Est GFR (Non-Af Amer) 93.9 (>60) 07/05/19 05:48 BUN/Creatinine Ratio 16.4 (8-20) 07/05/19 05:48 Glucose 109 mg/dL (70-100) H 07/05/19 05:48 Calcium 8.3 mg/dL (8.6-10.3) L 07/05/19 05:48 Objective: A&O x3, NAD Dressing changed, incision C/D/I, No edema, Calves soft and nontender, NVI distally. Assessment: 48 yo female s/p left LANCE POD #2 Plan: OOB, PT/OT WBAT Pain control DVT prophylaxis - Eliquis 2.5mg BID Home today
--- NOTE | 2019-07-06 10:23 | DS ---
Orthopedic Discharge Summary - Discharge Summary Date of Admission:07/04/19 Date of Discharge: 07/06/19 Date of Surgery: 07/04/19 Attending Orthopedic Provider: Luisa Morley MD Pre-operative Diagnosis: Left hip osteoarthritis Operative Procedure: Left total hip replacement Disposition of Patient: Home Condition of Patient: Stable History: BRENDAN HARTLEY is a 48 year old F with years of increasingly severe left hip pain. Patient has failed conservative management and has elected to undergo a left total hip replacement Hospital Course: BRENDAN was admitted to [facility] on 07/04/19. Patient underwent a Left total hip replacement without complication followed by a brief recovery in PACU and transfer to the Short Stay Surgical Unit in stable condition. Our hospitalist service, physical therapy and occupational therapy also participated in this patients care. Post-op day 1: patient was alert and in no acute distress. Dressing was clean, dry and intact. Operative extremity dorsiflexion and plantarflexion intact, sensation intact to light touch distally , DP2+. Post-op day two: dressing was changed, incision was clean, dry and intact. Patient was deemed to be medically and orthopedically stable for discharge. Physical therapy goals were met. The patient was discharged home in a stable condition. Home Medications Medication Instructions Recorded Confirmed Type Multivitamins/Minerals TAB* 1 tab PO QAM 11/13/17 07/04/19 History [Theragran/minerals TAB*] Albuterol Sulfate [Proventil Hfa] 2 puff INH Q4HR PRN 07/11/18 06/23/19 History Levothyroxine TAB* [Synthroid 125 125 mcg PO QAM 07/11/18 07/04/19 History MCG TAB*] Control 1 Tab Qam 1 tab PO QAM 06/23/19 06/23/19 History Calcium 1,200 mg PO QPM 07/04/19 07/04/19 History Iron 100-Vitamin C Tablet 30 mg PO QAM 07/04/19 07/04/19 History Apixaban* [Eliquis*] 2.5 mg PO BID tab 07/06/19 Rx Docusate CAP* [Colace Cap*] 100 mg PO BID cap 07/06/19 Rx oxyCODONE/Acetamin 5/325 MG* 1 tab PO Q4H PRN tab 07/06/19 Rx [Percocet 5/325 TAB*] oxyCODONE/Acetamin 5/325 MG* 2 tab PO Q4H PRN tab 07/06/19 Rx [Percocet 5/325 TAB*] Discharge Instructions following Orthopedic Surgery: Activity: * Weight Bearing as tolerated * Continue physical therapy and occupational therapy exercises as shown Hip replacements: Continue Hip Precautions- do not cross legs or bend greater than 90 degrees/squat Wound care: * OK to shower on post-op day 3, no bathing, swimming, or submerging wound. * Use gentle soap, pat dry. Cover with gauze, BRADEN wrap or tape. * Visiting home nurse to do wound checks. Call Orthopedic office for: * Increased drainage * Redness * Increased pain * Fever Go to ER with shortness of breath or chest pain. Diet: * Regular diet * Increase fluids and fiber to prevent constipation. * Continue to use stool softeners, call office if no bowel motion within 48 hours. Medications See Home Medication List in your packet for medications that you should take after discharge. DVT Prophylaxis: Eliquis Dosin.5 mg, 1 tab every 12 hours x 30 days Pain Control: Percocet Dosin/325 mg 1-2 tabs by mouth every 4-6 hours as needed for pain. Maximum of 10 tabs per day. Please note that Percocet contains Tylenol (acetaminophen). Maximum daily dose of Tylenol is 4000 mg from all sources. Antibiotics are required prior to any dental work. FOLLOW UP: Follow up with Dr. Morley Within 10-14 days, call for appointment Please call our office with any questions or concerns ([phone])
[2019-07-06 11:25] VITALS: BP 101/53
== END 2019-07-06 11:47 | disposition home health service (06) | DRG 301 ==
LOC: AA 06:18 → SSU 10:42 → EDSTATUS 13:15
PROVIDERS: ADMIT Orthopaedic Surgery Adult Reconstructive Orthopaedic Surgery; ATTEND Orthopaedic Surgery Adult Reconstructive Orthopaedic Surgery
PROC: 0SRB04A Replacement of Left Hip Joint with Ceramic on Polyethylene Synthetic Substitute, Uncemented, Open Approach (ICD-10-PCS; principal; 2019-07-04 08:30)
DX: M16.12 Unilateral primary osteoarthritis, left hip (principal); E03.9 Hypothyroidism, unspecified; J45.909 Unspecified asthma, uncomplicated; E78.5 Hyperlipidemia, unspecified; Z88.0 Allergy status to penicillin; Z88.1 Allergy status to other antibiotic agents; Z88.5 Allergy status to narcotic agent; Z79.890 Hormone replacement therapy
CPT/HCPCS: 36415; 72170; 80048; 85014; 85018; 85049; 90732; A9270-GY; C1713; C1776; J2250; J2405; J2704; J3010

== ENCOUNTER 2020-05-25 07:23 | Observation (INO) ==
[~2020-05-25 07:23] MED LIST changes: +Buffered Lidocaine 1% SYRIN 1 ml INTRADERM ONE; -Buffered Lidocaine 1% SYRIN* 1 ML/SYRINGE INTRADERM ONE; +Dexamethasone IV 4 MG/ML VIAL 1 ml VIAL IV SLOW PU ONE; +Famotidine IV 10 MG/ML 2 ml VIAL (20 mg) IV ONE; -Lactated Ringers 1000 ML Bag* 1,000 ML IV SCH; +Lactated Ringers 1000 ml BAG 1,000 ML IV SCH; -Tranexamic Acid 1,000 MG in NS 0.9% 50 ML* (outpatient use) IV SCH
[2020-05-25] MEDS ORDERED: Dexamethasone IV 4 MG/ML VIAL 1 ml VIAL ONE (07:43)
[2020-05-25] MEDS ORDERED: Famotidine IV 10 MG/ML 2 ml VIAL (20 mg) ONE (07:43)
[2020-05-25] MEDS ORDERED: Clindamycin 900 MG/D5W BAG 900 MG/50 ML BAG IVPB ONE (07:44)
[2020-05-25] MEDS ORDERED: Midazolam 5 mg/5 ml VIAL 1 mg/ml 5 ml VIAL (5 mg) ONE (08:58)
[2020-05-25] MEDS ORDERED: Propofol 10 MG/ML 20 ML BTL ONE ×2 (08:59→11:04)
[2020-05-25] MEDS ORDERED: Glycopyrrolate IV 0.2 MG/ML 1 ML VIAL ONE (08:59)
[2020-05-25] MEDS ORDERED: Ondansetron 4 mg VIAL 2 MG/ML 2 ml VIAL IV PRN ×2 (10:30→12:16)
[2020-05-25] MEDS ORDERED: fentaNYL 100 mcg/2 ml 50 MCG/ML VIAL IV PRN (10:30)
[2020-05-25] MEDS ORDERED: Acetaminophen IV 1 GM/100ML 1,000 MG/100 ML VIAL IVPB ONE (10:30)
[2020-05-25] MEDS ORDERED: Naloxone 0.4 mg VIAL 0.4 mg/ml 1 ml VIAL IV PRN (10:30)
[2020-05-25] MEDS ORDERED: Phenylephrine 40 mcg/mL 10mL (400mcg) SYRINGE ONE (10:32)
[2020-05-25] MEDS ORDERED: EPHEDrine (Pressors) 50 MG/ML VIAL ONE (11:40)
[2020-05-25] MEDS ORDERED: Lactulose 30 ml UDC PO PRN (12:16)
[2020-05-25] MEDS ORDERED: diPHENhydraMINE 25 mg TAB PO PRN (12:16)
[2020-05-25] MEDS ORDERED: Magnesium Hydroxide LIQ 30 ML UDC PO PRN (12:16)
[2020-05-25] MEDS ORDERED: oxyCODONE/Acetamin 5/325 mg TAB PO PRN (12:16)
[2020-05-25] MEDS ORDERED: diPHENhydraMINE IV 50 MG/ML 1 ml VIAL (BENADRYL) IV PRN (12:16)
[2020-05-25] MEDS ORDERED: Ondansetron ODT 4 mg TAB 4 MG TAB PO PRN (12:16)
[2020-05-25] MEDS ORDERED: Albuterol HFA INHALER 8 gm MDI INH PRN (14:45)
[2020-05-25] MEDS: Lactated Ringers 1000 ml BAG 1,000 ML IV SCH (15:08)
[2020-05-25] MEDS: Clindamycin 600 MG/D5W BAG 600 MG/50 ML BAG IV SCH (17:59)
[2020-05-25] MEDS: Magnesium Hydroxide LIQ 30 ML UDC PO SCH (20:09)
[2020-05-25] MEDS ORDERED: LR 1000 ML IV ONE (23:00)
[2020-05-26] MEDS: Lactated Ringers 1000 ml BAG 1,000 ML IV SCH ×2 (00:30→09:23)
[2020-05-26] MEDS: Clindamycin 600 MG/D5W BAG 600 MG/50 ML BAG IV SCH ×2 (01:45→10:16)
[2020-05-26 07:02] LABS: Hematocrit 26 % (35-47); Hemoglobin 8.5 g/dL (12.0-16.0); Mean Platelet Volume 8.6 fL (7.4-10.4); Platelet Count 181 10^3/uL (150-450)
[2020-05-26 07:21] LABS: BUN/Creatinine Ratio 21.9 (8-20); Calcium 8.5 mg/dL (8.6-10.3); EGFR African American 119.3 (>60); EGFR Non-African American 98.6 (>60); Potassium 4.3 mmol/L (3.5-5.0)
[2020-05-26] MEDS: Magnesium Hydroxide LIQ 30 ML UDC PO SCH (08:22)
[2020-05-26] MEDS ORDERED: Lactated Ringers 500 ml BAG 500 ML IV ONE (08:45)
[2020-05-26] MEDS ORDERED: Vitamin THERAPEUTIC TAB PO SCH (09:00)
[2020-05-26 12:45] LABS: Hematocrit 27 % (35-47); Hemoglobin 8.7 g/dL (12.0-16.0)
[2020-05-26 16:44] VITALS: BP 94/55
== END 2020-05-26 17:20 | disposition home or self-care (01) ==
LOC: OR 07:23 → SSU 07:23
PROVIDERS: ADMIT Orthopaedic Surgery Adult Reconstructive Orthopaedic Surgery; ATTEND Orthopaedic Surgery Adult Reconstructive Orthopaedic Surgery